=== PATIENT | male | born 1930 | race African-American/Black ===

== ENCOUNTER 2017-04-01 08:42 | Inpatient (IN) ==
[2017-04-01 09:24] LABS: Basophils # 0.1 10*3/uL (0.0-0.2); Basophils % 0.9 % (0.0-0.8); Eosinophils # 0.2 10*3/uL (0.0-0.87); Eosinophils % 1.3 % (0.00-10.9); Hematocrit 39.4 VOL% (42.0-52.0); Immature Granulocytes % 1.7 %; Immature Granulocytes Absolute 0.21 #; Lymphocytes # 2.6 10*3/uL (1.4-4.0); Lymphocytes % 20.9 % (21.2-54.2); Mean Corpuscular Hemoglobin 26 PG (27-34); Mean Corpuscular Volume 79.8 FL (87-102); Mean Platelet Volume 10.1 FL (9.6-12.0); Monocytes % 7.9 % (1.7-12.7); Neutrophils # 8.2 10*3/uL (1.4-7.4); Neutrophils % 67.3 % (38.7-73.9); Platelet Count 330 T/CUMM (130-400); Red Blood Count 4.94 MC/CUMM (3.8-5.5); Red Cell Distribution Width 14.8 % (9.3-17.3); White Blood Count 12.2 T/CUMM (4-12)
[2017-04-01 10:06] LABS: Alanine Aminotransferase 14 U/L (16-61); Albumin 3.6 G/DL (3.4-5.0); Alkaline Phosphatase 89 U/L (45-117); Aspartate Amino Transferase 14 U/L (0-37); Bilirubin,Total < 0.39 MG/DL (0.2-1.0); Calcium 9.4 MG/DL (8.5-10.1); Total Protein 6.8 G/DL (6.4-8.3)
--- NOTE | 2017-04-01 10:06 | CT Report ---
Referring physician: Augie Polk EXAM: CT abdomen and pelvis without contrast DATE: April 01, 2017 COMPARISON: CT abdomen and pelvis July 05, 2016, lumbar spine x-rays November 26, 2013 REASON: Left-sided abdominal pain with weight loss TECHNIQUE: Axial images of the abdomen and pelvis were obtained without the use of contrast. Coronal and sagittal reformatted images were also provided. Total DLP is 186.4 mGy*cm. FINDINGS: Lower thorax: There is mild right pleural fluid. There also mild opacities at both lung bases, mainly within the right lower lobe. This most consistent with atelectasis and scarring, but there could also be pneumonia within the right lower lobe. A moderate hiatal hernia is present. ABDOMEN: Liver: Unremarkable. Gallbladder and bile ducts: The gallbladder is unremarkable. The common bile duct is partially obscured but appears upper normal in size. Pancreas: Evaluation of the pancreas is limited by the lack of contrast and adjacent unopacified bowel. The pancreatic duct is mildly prominent, measuring 0.55 cm in diameter. Comparison to the previous study is difficult, but it may be slightly more prominent today. Spleen: Unremarkable. Adrenals: Unremarkable. Kidneys and ureters: There are small calcifications at the renal ousmane bilaterally, which are likely vascular. There is also a punctate nonobstructing stone at the upper pole of the right kidney. No hydronephrosis is present, and no ureteral calculi are seen. A 1.6 cm cyst is suspected at the lower pole of the right kidney but is not well characterize due to the lack of contrast. PELVIS: Bladder: Unremarkable. Reproductive: Unremarkable as visualized. ABDOMEN AND PELVIS: Bowel: There is linear density within the upper abdomen anterior to the pancreas. This could represent vascular calcification or a suture line at the bowel. There is no evidence of bowel obstruction. There are a few colonic diverticula but no evidence of diverticulitis. Appendix: The appendix is poorly visualized, but there are no secondary signs of appendicitis. Vasculature: There is prominent calcified plaque at the arteries, but the aorta is normal in size. Peritoneum: No free air or ascites is seen. There is mild diffuse mesenteric edema. Lymph nodes: No suspicious adenopathy is seen. Abdominal/pelvic wall: Unremarkable. Bones: There is a subacute or remote fracture of the right 11th rib and mild remote compression fractures of T11 and T12. There is also extensive multilevel degenerative change at the spine. IMPRESSION: 1. Mild right pleural fluid. There are also mild opacities at the lung bases, mainly within the right lower lobe. This is most consistent with atelectasis and scarring, but there could also be pneumonia within the right lower lobe. 2. The pancreatic duct is mildly prominent, measuring 0.55 cm in diameter. Comparison to the previous study is difficult, but it may be slightly more prominent today. 3. Moderate hiatal hernia. 4. Punctate nonobstructing stone at the upper pole of the right kidney. There is also a probable 1.6 cm right renal cyst, which is not well characterized on this noncontrast study. 5. Nonspecific mild mesenteric edema. 6. Mild colonic diverticulosis without evidence of diverticulitis. 7. Subacute or remote fracture of the right 11th rib. The CT exam was performed using one or more of the following dose reduction techniques: Automated exposure control and adjustment of the mA and/or kV according to patient size. PROCEDURE INTERPRETED AT [facility] DEPARTMENT OF RADIOLOGY Final Report Signed by: Dr. Lakeisha Gutierrez
[2017-04-01 10:07] LABS: Blood Urea Nitrogen 13 MG/DL (7-18); Glucose 84 MG/DL (74-106); Magnesium 1.9 MG/DL (1.8-2.4); Osmolality,Calculated 281.1 MOS/KG (273-304); Potassium 3.5 MMOL/L (3.5-5.1); Sodium 142 MMOL/L (136-145)
--- NOTE | 2017-04-01 10:09 | XRay Report ---
Referring Physician: Augie Polk Exam: XR chest 1V portable Date: April 01, 2017 at 9:22 AM Reason: Generalized abdominal pain Comparison: Chest one view portable October 01, 2016 and November 25, 2013 Findings: The cardiac silhouette is upper normal in size, and the thoracic aorta is tortuous with scattered calcified plaque. There are mild bibasilar opacities. This likely represents atelectasis and scarring, but there could also be pneumonia, especially at the right lung base. No pneumothorax is identified, but there is mild right pleural fluid. There is again a fracture of the proximal diaphysis of the right humerus. Surgical hardware was previously seen but is not identified on this study. The osseous structures otherwise appear stable as visualized. Impression: 1. There are mild bibasilar opacities, mainly on the right. This likely represents atelectasis and scarring, but there could also be pneumonia. There is also mild right pleural fluid. 2. Displaced fracture of the proximal diaphysis of the right humerus. This was present on the previous study. The previously seen surgical hardware at the right humerus is not identified today. PROCEDURE INTERPRETED AT [facility] DEPARTMENT OF RADIOLOGY Final Report Signed by: Dr. Lakeisha Gutierrez
[2017-04-01 10:10] LABS: Apearance,Urine CLEAR (Clear); Bilirubin,Urine Negative (Negative); Blood, Urine Negative (Negative); Glucose,Urine (UA) Negative (Negative); Ketones,Urine Negative (Negative); Mucus,Urine Occasional /LPF (Occasional); Nitrite,Urine Negative (Negative); Protein,Urine Negative; RBC,Urine <1 /HPF (0-4); Urine Color Yellow (Yellow); Urine Specific Gravity 1.019 (1.001-1.035); Urine Urobilinogen < 2.0 EU/DL (0.2-1.0); WBC,Urine <1 /HPF (0-6)
--- NOTE | 2017-04-01 10:43 | Emergency Department Note ---
Beni Lizama Manpreet, am scribing for, and in the presence of, Augie Polk MD 09:17. Felicitas Lizama Phillip K, MD, personally performed the services described in this documentation, ascribed by Jamie Bazan in my presence, and it is both accurate and complete 043 . Arrival - Arrival Chief Complaint: Non-Specific Stated Complaint: abd pain/rapid weight loss ED Nursing Triage Note: Family reports pt has been c/o abd pain, not eating, and weight loss worse over the last 2 wks but is has been going on for a while now. Pt saw Dr Dukes on Saturday and son states he is here to be admitted for work up. Mode of Arrival: Wheelchair Limitations: No Limitations Source: Family Time Seen by Provider: 04/01/17 09:09 - History of Present Illness HPI Narrative: Pt is a 86 y/o male, with PMHx of HTN, HLD, COPD, and A-fib, who presents to the ED with CC of Abd pain. Pt is accompanied by his son, who is his primary historian. Pt's son states the Pt has been having this Abd pain since 1 year and has worsened over the last [address] Dukes on Saturday (03/29/2017) for this same reason. The son reports the Pt having a cough and has lost 46 pounds over the course of the year. The son denies the Pt having N/V/D and has had nml BM. No other pains/complaints reported to ED. Onset (ago): month(s) Consistency: constant Severity: moderate Severity scale (1-10): 3 Quality: cramping Allergies/Adverse Reactions: Allergies Allergy/AdvReac Type Severity Reaction Status Date / Time ciprofloxacin [From Cipro] Allergy Unknown/Unable Verified 09/24/16 13:57 to obtain Cyclobenzaprine Allergy Unknown/Unable Verified 09/24/16 13:57 [From Flexeril] to obtain Home Medications: Home Medications Medication Instructions Recorded Confirmed Type Amlodipine Besylate 10 mg PO DAILY 11/05/15 09/25/16 History Lipase/Protease/Amylase [Pancreaze 1 each PO DAILY 11/05/15 09/25/16 History 10,500 Units] Potassium Chloride Cap/Tab [Micro 8 meq PO BID 11/05/15 09/25/16 History K] Pravastatin [Pravachol] 20 mg PO DAILY 11/05/15 09/25/16 History Theophylline ER Tab 300 mg PO DAILY 11/05/15 09/25/16 History clonazePAM [Clonazepam] 0.5 tablet PO BID 11/05/15 09/25/16 History predniSONE TAB [PredniSONE] 10 mg PO DAILY 11/05/15 09/25/16 History Apixaban [Eliquis] 2.5 mg PO BID #60 tablet 11/11/15 09/25/16 Rx Montelukast Tab [Singulair Tab] 10 mg PO DAILY #30 tablet 11/11/15 09/25/16 Rx Carvedilol [Coreg] 6.25 mg PO BID 09/24/16 09/25/16 History Diltiazem Cd Cap [Cardizem CD] 180 mg PO BID 09/24/16 09/25/16 History Ferrous Sulfate Tab [Feosol 325 mg PO DAILY 09/24/16 09/25/16 History Original Tab] Linaclotide [Linzess] 145 mcg PO DAILY 09/24/16 09/25/16 History Metformin HCl 500 mg PO BID 09/24/16 09/25/16 History Ranitidine Tab [Zantac Tab] 150 mg PO BEDTIME 09/24/16 09/25/16 History sitaGLIPtin [Januvia] 100 mg PO DAILY 09/24/16 09/25/16 History Cefuroxime Tab [Ceftin] 500 mg PO BID #10 tablet 10/02/16 Rx HYDROcodone/ACETAMIN 7.5-325 1 tablet PO Q4H #60 tablet 10/02/16 Rx [[place] 7.5-325] Pantoprazole Tab [Protonix Tab] 40 mg PO BID@0700,1900 #60 tablet 10/02/16 Rx Polyethylene Glycol Powder 17 gm PO BID PRN powder 10/02/16 Rx [Miralax] Tamsulosin [Flomax] 0.4 mg PO BID #60 capsule 10/02/16 Rx Review of System - Review of System 12 point system: reviewed and no additional remarkable complaints except as stated - Review of System Constitutional: Present: weight loss (Has lost 46 pounds). Absent: chills, fever Respiratory: Present: cough Gastrointestinal: Present: abdominal pain. Absent: nausea, vomiting, diarrhea Musculoskeletal: Absent: arm pain, back pain, leg pain, neck pain Neurological: Absent: headache, weakness Medical,Surgical,& Family Hx - Medical History Cardio: History of: Cardiac Dysrhythmia (Afib), Hypertension Endocrine: History of: Diabetes Mellitus (NIDDM), Dyslipidemia Respiratory: History of: COPD Gastrointestinal: History of: GERD Musculoskeletal: History of: Musculoskeletal Problems (,fx right arm with surgery and brace) Hematology: History of: Bleeding Problems (Heme postitive stool in er) - Surgical History Cardiac Surgeries: Patient Denies: Cardiac Surgery Abdominal Surgeries: Surgical HX of: Colonoscopy, EGD, Hernia Repair Orthopedic Surgeries: Surgical HX of;: Orthopedic Surgery (fx right arm Dr Steve in [place]) - Family History Family History: Reports;: Family Cancer (colon daughter; prostate; son) - Social History Smoking Status: Former smoker Exam Vital Signs: Vital Signs Temperature 98 F 04/01/17 10:40 Pulse Rate 67 04/01/17 10:40 Respiratory Rate 37 H 04/01/17 10:40 Blood Pressure 150/75 04/01/17 10:40 O2 Sat by Pulse Oximetry 94 L 04/01/17 10:40 - General General appearance: alert, in no apparent distress - Head Head exam: Present: atraumatic, normocephalic, normal inspection - Eye Eye exam: Present: normal appearance, PERRL, EOMI, other (Pale conjuctiva) - ENT ENT exam: Present: normal exam, mucous membranes dry, TM's normal bilaterally - Neck Neck exam: Present: normal inspection, full ROM, trachea midline. Absent: tenderness, thyromegaly - Chest Chest inspection: Present: normal inspection, symmetric chest wall rise. Absent : tenderness - Respiratory Respiratory exam: Present: normal lung sounds bilaterally. Absent: accessory muscle use, respiratory distress - Cardiovascular Cardiovascular exam: Present: regular rate, normal rhythm, normal heart sounds - Abdominal Exam Abdominal exam: Present: tenderness (RUQ Tenderness), normal bowel sounds. Absent: distention - Rectal Exam Rectal exam: Present: heme (-) stool - Extremities Exam Extremities exam: Present: other (Long arm splint on right arm). Absent: normal inspection - Back Exam Back exam: Present: normal inspection, full ROM. Absent: tenderness - Neurological Exam Neurological exam: Present: alert, oriented X3, CN II-XII intact, reflexes normal - Psychiatric Psychiatric exam: Present: normal affect, normal mood - Skin Skin exam: Present: warm, dry, intact, normal color. Absent: pallor Course Course Narrative: Patient discussed with the hospitalist. Dr. Dukes wanted this patient admitted for workup of his weight loss and abdominal pain. Results - Labs CBC & BMP: 04/01/17 09:17 04/01/17 09:17 Lab Results: I have reviewed the patients labs Labs: Laboratory Tests 04/01/17 09:17 WBC 12.2 H Hgb 13.0 L Hct 39.4 L MCV 79.8 L MCH 26 L Lymph % (Auto) 20.9 L Baso % (Auto) 0.9 H Neut # (Auto) 8.2 H Dyer # (Auto) 1.0 H Laboratory Tests 04/01/17 04/01/17 09:17 09:17 Sodium 142 Potassium 3.5 Chloride 104 Carbon Dioxide 33 H BUN/Creatinine Ratio 16.00 ALT 14 L Urine pH 6.0 Ur Specific Silver 1.019 Urine Urobilinogen < 2.0 H Urine RBC <1 Urine WBC <1 - EKG EKG results: interpreted by MAMADOU, sinus rhythm (Old septal MA) - Diagnostic Findings Procedure: Chest x-ray: report reviewed by me (1. There are mild bibasilar opacities, mainly on the right. This likely represents atelectasis and scarring , but there could also be pneumonia. There is also mild right pleural fluid. 2. Displaced fracture of the proximal diaphysis of the right humerus. This was present on the previous study. The previously seen surgical hardware at the right humerus is not identified today.), CT Abdomen and Pelvis: report reviewed by me (CT Abd/Pel w/o con: 1. Mild right pleural fluid. There are also mild opacities at the lung bases, mainly within the right lower lobe. This is most consistent with atelectasis and scarring, but there could also be pneumonia within the right lower lobe. 2. The pancreatic duct is mildly prominent, measuring 0.55 cm in diameter. Comparison to the previous study is difficult, but it may be slightly more prominent today. 3. Moderate hiatal hernia. 4. Punctate nonobstructing stone at the upper pole of the right kidney. There is also probable 1.6 cm right renal cyst, which is not well characterized on the noncontrast study. 5. Nonspecific mild mesenteric edema. 6. Mild colonic diverticulosis without evidence of diverticulitis. 7. Subacute or remote fracture of the right 11th rib.) Disposition Clinical Impression: Weight loss, abnormal, Abdominal pain, Possible right lower lobe pneumonia Case discussed with: patient, patient's family Disposition: Still a Patient Condition: Guarded Additional Instructions: Admit to the hospitalist.
--- NOTE | 2017-04-01 11:44 | Hospitalist History & Physical ---
Assessment and Plan - Time spent with patient Time spent with patient: Greater than 30 minutes (1) Weight loss, unintentional Status: Acute Current Visit: Yes (2) Hypertension Status: Acute Assessment and plan: Mr. ford is an 86-year-old -N[place]alese male with history of A. fib on Eliquis, COPD, hypertension, diabetes, peptic ulcer disease with history of GI bleed admitted by the hospitalist service with abdominal pain and 45 pound weight loss in the last 6 months. Patient was seen by Dr. Ibrahim in his office and he requested admission for evaluation. Will restart all of patient's home medicines for his diabetes, hypertension, and COPD. We will go ahead and hold his Eliquis if it is listed on his home meds. Consult GI for evaluation for colonoscopy. Patient has seen Dr. Chogn on previous admission. Dr. Traore will see and examined patient and further recommendations to follow. Current Visit: Yes (3) Diabetes Status: Acute Current Visit: Yes (4) History of atrial fibrillation Status: Acute Current Visit: Yes (5) History of GI bleed Status: Acute Current Visit: Yes (6) COPD (chronic obstructive pulmonary disease) Status: Acute Current Visit: Yes (7) Abdominal pain Status: Acute Current Visit: Yes History of Present Illness Chief complaint: Abdominal pain and weight loss History of present illness: Mr. Ford Sr is a 86 year old -N[place]alese male with history of peptic ulcer disease with history of GI bleeding, COPD, intermittent A. fib on Eliquis , diabetes and hypertension presenting to the ED from Dr. Ibrahim's office with abdominal pain 6 months and 45 pound weight loss. Patient is very hard of hearing and entire history taken from son who is present. According to the son the patient has had abdominal pain intermittently for the last 6 months or more and it recently worsened in the last 2 weeks to 1 month. Son states he has had some nausea with some vomiting, decreased appetite, and normal bowel movements. He went and saw Dr. Ibrahim and Dr. Ibrahim wanted him admitted for further evaluation. Patient is afebrile with vital signs stable. Patient is anemic with an H&H of 13/39.4 but this is up from his admission in September.5. He was admitted that time with a GI bleed and underwent EGD by Dr. Thaggard. C scope was not recommended at that time. CT scan done in the ED without contrast showing mild right pleural fluid most consistent with atelectasis and scarring. There is a questionable pneumonia in the right lower lobe. Pancreatic duct is mildly prominent. He has a moderate hiatal hernia. Nonobstructing stone at the upper pole of the right kidney with a probable 1.6 cm right renal cyst. Mild mesenteric edema. Mild colonic diverticulosis without diverticulitis. And subacute or remote fracture of the right 11th rib. Upon exam, history is difficult to obtain from patient due to hard of hearing and difficulty understanding speech. His chest is clear, abdomen is soft with mild tenderness in the left lower quadrant with normal bowel sounds. Patient's only complaints are of headache and abdominal pain with nausea. He denies blurry vision, dysphasia, shortness of breath, chest pain, or lower extremity edema. Patient's case was discussed with Dr. Polk the ED physician and Dr. Traore the admitting hospitalist, and it was agreed patient would be admitted for further evaluation. Home Medications Medication Instructions Recorded Confirmed Type Lipase/Protease/Amylase [Pancreaze 1 each PO DAILY 11/05/15 04/01/17 History 10,500 Units] Potassium Chloride Cap/Tab [Micro 8 meq PO BID 11/05/15 04/01/17 History K] Pravastatin [Pravachol] 20 mg PO DAILY 11/05/15 04/01/17 History Theophylline ER Tab 300 mg PO DAILY 11/05/15 04/01/17 History clonazePAM [Clonazepam] 0.5 tablet PO BID 11/05/15 04/01/17 History predniSONE TAB [PredniSONE] 10 mg PO QOTHER DAY 11/05/15 04/01/17 History Carvedilol [Coreg] 6.25 mg PO BID 09/24/16 04/01/17 History Ferrous Sulfate Tab [Feosol 325 mg PO DAILY 09/24/16 04/01/17 History Original Tab] Metformin HCl 500 mg PO BID 09/24/16 04/01/17 History Ranitidine Tab [Zantac Tab] 150 mg PO BEDTIME 09/24/16 04/01/17 History sitaGLIPtin [Januvia] 100 mg PO DAILY 09/24/16 04/01/17 History Pantoprazole Tab [Protonix Tab] 40 mg PO BID@0700,1900 #60 tablet 10/02/1604/01 Rx Albuterol Neb [Proventil Neb] 2.5 mg RESP TX BID 04/01/17 04/01/17 History Aspirin [Ecotrin] 81 mg PO QOTHER DAY 04/01/17 04/01/17 History Doxycycline Hyclate Cap 100 mg PO BID 04/01/17 04/01/17 History [Vibramycin Cap] HYDROcodone/ACETAMIN 5-325 [[place] 1 tablet PO BID 04/01/17 04/01/17 History 5-325] Montelukast Tab [Singulair Tab] 10 mg PO BEDTIME 04/01/17 04/01/17 History dilTIAZem HCl [Diltiazem ER (24 180 mg PO BID 04/01/17 04/01/17 History hr)] Allergies Allergy/AdvReac Type Severity Reaction Status Date / Time ciprofloxacin [From Cipro] Allergy Unknown/Unable Verified 09/24/16 13:57 to obtain Cyclobenzaprine Allergy Unknown/Unable Verified 09/24/16 13:57 [From Flexeril] to obtain Medical,Surgical,& Family Hx - Medical History Cardio: History of: Cardiac Dysrhythmia (Afib), Hypertension Endocrine: History of: Diabetes Mellitus (NIDDM), Dyslipidemia Respiratory: History of: COPD Gastrointestinal: History of: GERD Musculoskeletal: History of: Musculoskeletal Problems (,fx right arm with surgery and brace) Hematology: History of: Bleeding Problems (Heme postitive stool in er) - Surgical History Cardiac Surgeries: Patient Denies: Cardiac Surgery Abdominal Surgeries: Surgical HX of: Colonoscopy, EGD, Hernia Repair Orthopedic Surgeries: Surgical HX of;: Orthopedic Surgery (fx right arm Dr Steve in [place]) - Family History Family History: Reports;: Family Cancer (colon daughter; prostate; son), Family Diabetes, Family Hypertension - Social History Smoking Status: Former smoker Have you smoked in the last 12 months: No Frequency of Alcohol Use: None Type of Drug Use: None Lives With:: Children Functional capacity: independent ambulation Review of systems: A complete 10 system review of systems was obtained and pertinent positives and negatives per HPI Exam - Constitutional Vitals: Period Temp Pulse Resp BP Sys/Diaz Pulse Ox Last 24 Hr 98 F-98.0 F 67-68 20-37 123-150/75-80 94-95 Exam: Constitutional System: No distress. No tremulousness. Head: Normocephalic, atraumatic. Ears, Nose and Throat System: No evidence of Otitis or Mastoiditis. No epistaxis or discharge Eyes System: Pupils equal, round, and reactive. Extraocular muscles intact. Neck: Supple, without adenopathy, No jugular venous distention. No thyromegaly, neck mass, or prior surgery apparent. Respiratory System: Chest clear to auscultation. Cardiovascular System: Heart with regular rate and rhythm. No murmur. GI System: Abdomen soft, mildly tender left lower quadrant. Normo active bowel sounds present. Musculoskeletal System: limbs with no pedal edema. Full distal pulses. Neurological System: No discernable sensory deficit. No aphasia Psychiatric System: Conversation is rational Results - Labs CBC & BMP: 04/01/17 09:17 04/01/17 09:17 Lab Results: I have reviewed the past 24 hour labs - EKG EKG results: sinus rhythm - Diagnostic Findings Procedure: Chest x-ray: report reviewed by me (Mild bibasilar opacities mainly on the right. Mild right pleural fluid. Displaced fracture of the proximal diaphysis of the right humerus.), CT Abdomen and Pelvis: report reviewed by me ( Mild right pleural fluid with questionable pneumonia right lower lobe. Mildly prominent pancreatic duct. Moderate hiatal hernia. Nonobstructing stone at the upper pole of the right kidney with 1.6 cm right renal cyst. Mild mesenteric edema. Mild colonic diverticulosis without diverticulitis. Subacute fracture of right 11th rib)
[2017-04-01] MEDS ORDERED: guaiFENesin/DM ER 600-30 MG TABLET PO PRN (11:51)
[2017-04-01] MEDS ORDERED: ACETAMINOPHEN 325 MG TABLET PO PRN ×2 (11:51)
[2017-04-01] MEDS ORDERED: ONDANSETRON 4 MG/2 ML VIAL IV PRN (11:51)
[2017-04-01] MEDS ORDERED: diphenhydrAMINE CAP 25 MG CAPSULE PO PRN (11:51)
[2017-04-01] MEDS ORDERED: DOCUSATE SODIUM 100 MG CAPSULE PO PRN (11:51)
[2017-04-01] MEDS ORDERED: MORPHINE 2 MG/1 ML SYRINGE IV PRN (11:51)
[2017-04-01] MEDS ORDERED: PROMETHAZINE 25 MG TABLET PO PRN (11:51)
[2017-04-01] MEDS ORDERED: PANTOPRAZOLE 40 MG TABLET PO SCH (12:00)
[2017-04-01] MEDS ORDERED: DEXTROSE 50% 25 GM/50 ML VIAL IV PRN (12:02)
[2017-04-01] MEDS ORDERED: GLUCAGON 1 MG VIAL IM PRN (12:02)
--- NOTE | 2017-04-01 13:04 | Gastrointestinal Consult Note ---
Assessment and Plan (1) Abdominal pain Status: Acute Assessment and plan: 04/01-1 year history of left lower quadrant abdominal pain now worsened and constant in nature. No other associated symptoms. Last endoscopy noted as below. Weight loss noted as below. Eliquis held 3 weeks for her son. [address] of abdomen without contrast with no acute findings noted. Plan an addendum to followed by Dr. Chong. Current Visit: Yes History of Present Illness Chief complaint: Abdominal pain History of present illness: Mr. Logan Leon is a 86 year old male who was admitted to the hospital today with complaints of worsening abdominal pain. Patient is very hard of hearing and a poor historian however her son is at bedside and provides historical information. Information also obtained from chart review. Patient signed states that he has a history of left lower quadrant abdominal pain for the past year however this seems to have worsened over the past couple months. He states that initially the pain would come and go however over the past 2 months patient has complained of the pain being consistent. There seems to be no precipitating factors with the pain and he has no other associated symptoms. States that the patient is having good bowel movements with no melena or hematochezia. Reports that the patient is also having no nausea or vomiting associated with this. Eating does not seem to affect the pain level. He states that the pain is always in the left lower quadrant. Patient is also reported to have lost 45 pounds over the last 6 months. Patient has his meals prepared for him daily however he is reported to eat fairly well at most meals. Patient denies any difficulty swallowing. No appreciable tenderness on exam to the left lower quadrant at this time. He has a history of endoscopy in the past with last EGD in September of last year following findings of melena with only finding noted to be large hiatal hernia. Last colonoscopy was done in [address] Chen with only findings of diverticulosis. Patient has a history of atrial fibrillation and has been on Eliquis in the past however this is been held the last 3 weeks following removal of, per patient's son, a amy to his right humerus which was placed following a fall in August of last year. No reported family history of colon cancer. He has a history of diabetes and COPD as well as hypertension. He also has a reported history of peptic ulcer disease years ago. Denies any NSAID use. Home Medications Medication Instructions Recorded Confirmed Type Lipase/Protease/Amylase [Pancreaze 1 each PO DAILY 11/05/15 04/01/17 History 10,500 Units] Potassium Chloride Cap/Tab [Micro 8 meq PO BID 11/05/15 04/01/17 History K] Pravastatin [Pravachol] 20 mg PO DAILY 11/05/15 04/01/17 History Theophylline ER Tab 300 mg PO DAILY 11/05/15 04/01/17 History clonazePAM [Clonazepam] 0.5 tablet PO BID 11/05/15 04/01/17 History predniSONE TAB [PredniSONE] 10 mg PO QOTHER DAY 11/05/15 04/01/17 History Carvedilol [Coreg] 6.25 mg PO BID 09/24/16 04/01/17 History Ferrous Sulfate Tab [Feosol 325 mg PO DAILY 09/24/16 04/01/17 History Original Tab] Metformin HCl 500 mg PO BID 09/24/16 04/01/17 History Ranitidine Tab [Zantac Tab] 150 mg PO BEDTIME 09/24/16 04/01/17 History sitaGLIPtin [Januvia] 100 mg PO DAILY 09/24/16 04/01/17 History Pantoprazole Tab [Protonix Tab] 40 mg PO BID@0700,1900 #60 tablet 10/02/1604/01 Rx Albuterol Neb [Proventil Neb] 2.5 mg RESP TX BID 04/01/17 04/01/17 History Aspirin [Ecotrin] 81 mg PO QOTHER DAY 04/01/17 04/01/17 History Doxycycline Hyclate Cap 100 mg PO BID 04/01/17 04/01/17 History [Vibramycin Cap] HYDROcodone/ACETAMIN 5-325 [[place] 1 tablet PO BID 04/01/17 04/01/17 History 5-325] Montelukast Tab [Singulair Tab] 10 mg PO BEDTIME 04/01/17 04/01/17 History dilTIAZem HCl [Diltiazem ER (24 180 mg PO BID 04/01/17 04/01/17 History hr)] Allergies Allergy/AdvReac Type Severity Reaction Status Date / Time ciprofloxacin [From Cipro] Allergy Unknown/Unable Verified 09/24/16 13:57 to obtain Cyclobenzaprine Allergy Unknown/Unable Verified 09/24/16 13:57 [From Flexeril] to obtain Medical,Surgical,& Family Hx - Medical History Cardio: History of: Cardiac Dysrhythmia (Afib), Hypertension Endocrine: History of: Diabetes Mellitus (NIDDM), Dyslipidemia Respiratory: History of: COPD Gastrointestinal: History of: GERD Musculoskeletal: History of: Musculoskeletal Problems (,fx right arm with surgery and brace) Hematology: History of: Bleeding Problems (Heme postitive stool in er) - Surgical History Cardiac Surgeries: Patient Denies: Cardiac Surgery Abdominal Surgeries: Surgical HX of: Colonoscopy, EGD, Hernia Repair Orthopedic Surgeries: Surgical HX of;: Orthopedic Surgery (fx right arm Dr Steve in [place]) - Family History Family History: Reports;: Family Cancer (colon daughter; prostate; son), Family Diabetes, Family Hypertension - Social History Smoking Status: Former smoker Frequency of Alcohol Use: None Type of Drug Use: None ROS unobtainable: other (Very hard of hearing) Exam - Constitutional Vitals: Period Temp Pulse Resp BP Sys/Diaz Pulse Ox Last 24 Hr 98 F-98.0 F 67-68 20-37 123-150/69-80 90-95 General appearance: no acute distress, under weight - Head Head exam: Present: normal inspection, normocephalic - Eye Eye exam: Present: other (Lids and conjunctive are unremarkable). Absent: scleral icterus - ENT ENT exam: Present: normal exam, normal oropharynx - Neck Neck exam: Present: normal inspection - Respiratory Respiratory exam: Present: clear to auscultation bilaterally. Absent: rales, rhonchi, wheezes - Cardiovascular Cardiovascular exam: Present: regular rate and rhythm. Absent: diastolic murmur , JVD, systolic murmur - GI/Abdominal GI/Abdominal exam: Present: normal bowel sounds, soft. Absent: ascites, distended, mass, organomegaly, tenderness - Extremities Exam Extremities exam: Present: normal inspection, full ROM - Back Exam Back exam: Present: normal inspection - Neurological Exam Neurological exam: Present: alert, oriented X3 - Psychiatric Psychiatric exam: Present: normal affect, normal mood - Skin Skin exam: Present: normal color, warm, dry Results - Labs CBC & BMP: 04/01/17 09:17 04/01/17 09:17 Lab Results: I have reviewed the past 24 hour labs Quality Measures - VTE Contraindication to Pharmacological VTE Prophylaxis: Already on Theraputic Agent , No Prophylaxis Needed
[2017-04-01] MEDS: ALBUTEROL 2.5 MG/3 ML NEB RESP TX SCH ×2 (14:00→21:17)
[2017-04-01] MEDS: SODIUM CHLORIDE 0.9% 1,000 ML IV SCH ×2 (14:13→23:18)
[2017-04-01] MEDS: PRAVASTATIN 20 MG TABLET PO SCH (14:15)
[2017-04-01] MEDS: POTASSIUM CHLORIDE 8 MEQ CAPSULE PO SCH ×2 (14:15→20:54)
[2017-04-01] MEDS: THEOPHYLLINE ER 300 MG TABLET PO SCH (14:15)
[2017-04-01] MEDS: ASPIRIN EC 81 MG TABLET PO SCH (14:16)
[2017-04-01] MEDS: CARVEDILOL 6.25 MG TABLET PO SCH ×2 (14:24→20:56)
[2017-04-01] MEDS: DILTIAZEM CD 180 MG CAPSULE PO SCH ×2 (14:24→20:54)
[2017-04-01] MEDS: sitaGLIPtin 100 MG TABLET PO SCH (14:25)
[2017-04-01] MEDS: clonazePAM 0.5 MG TABLET PO SCH ×2 (15:32→20:55)
--- NOTE | 2017-04-01 16:24 | CT Report ---
Exam:CT chest wo con Date:04/01/2017 2:36 PM Indication: Weight loss Comparison: CT abdomen pelvis 04/01/2017 Technical: Images were obtained from the thoracic inlet through the lung bases without intravenous or oral contrast. Axial sagittal and coronal imaging was available for review. Dose reduction was performed with decreasing kv and mA and automated exposure Total DLP: 238.3 mGy*cm Findings: The thyroid gland, trachea and esophagus are unremarkable. The anterior middle and posterior mediastinum are demonstrated with small nodes in the carinal and aortopulmonic window measuring approximately 1 cm. The heart is demonstrated with coronary artery calcifications. Mild cardiac prominence is present.. ASVD is present in the aorta. The lungs are demonstrated with a small right base pleural effusion and atelectatic change. A hiatal hernia is demonstrated. Scarring is present in the basilar regions right greater than left without obvious nodularity The bony structures are demonstrated with degenerative spondylosis change and mild kyphosis and dextroscoliotic curve present. The abdominal structures are described by Dr. Gutierrez earlier today. Impression: 1. Underlying small right base pleural effusion with atelectatic change infiltrate and or scarring in the base regions ,right greater than left. 2. Small shoddy nodes in the mediastinum 3. Vascular calcinosis present. 4. Compound scoliosis PROCEDURE INTERPRETED AT [facility] DEPARTMENT OF RADIOLOGY Final Report Signed by: Dr. Heath Nicole
[2017-04-01] MEDS: INSULIN LISPRO 100 UNIT/ML SUBCUT SCH ×2 (17:41→22:07)
[2017-04-01] MEDS: metroNIDAZOLE INJ 500 MG in PREMIX 1 EACH IV SCH (18:39)
[2017-04-01] MEDS: PANTOPRAZOLE 40 MG TABLET PO SCH (19:48)
[2017-04-01] MEDS: cefTRIAXone 1,000 MG VIAL IM SCH (19:56)
[2017-04-01] MEDS: MONTELUKAST 10 MG TABLET PO SCH (20:55)
[2017-04-01] MEDS: FAMOTIDINE 20 MG TABLET PO SCH (20:55)
[2017-04-02] MEDS: metroNIDAZOLE INJ 500 MG in PREMIX 1 EACH IV SCH ×3 (01:56→18:39)
[2017-04-02 05:29] LABS: Basophils # 0.1 10*3/uL (0.0-0.2); Basophils % 1.2 % (0.0-0.8); Eosinophils # 0.3 10*3/uL (0.0-0.87); Eosinophils % 2.8 % (0.00-10.9); Hematocrit 34.2 VOL% (42.0-52.0); Immature Granulocytes % 1.8 %; Immature Granulocytes Absolute 0.19 #; Lymphocytes % 18.8 % (21.2-54.2); Mean Corpuscular HGB Conc 32.2 GM/DL (32-36); Mean Corpuscular Hemoglobin 26 PG (27-34); Mean Corpuscular Volume 80.9 FL (87-102); Mean Platelet Volume 10.7 FL (9.6-12.0); Monocytes # 0.9 10*3/uL (0.11-0.8); Neutrophils # 6.9 10*3/uL (1.4-7.4); Neutrophils % 66.4 % (38.7-73.9); Platelet Count 311 T/CUMM (130-400); Red Blood Count 4.23 MC/CUMM (3.8-5.5); Red Cell Distribution Width 14.9 % (9.3-17.3); White Blood Count 10.4 T/CUMM (4-12)
[2017-04-02 05:54] LABS: Elliptocytes Few; Hypochromasia 1+; Platelet Estimate Adequate
[2017-04-02 05:55] LABS: Microcytosis Slight
[2017-04-02 05:58] LABS: Albumin 2.9 G/DL (3.4-5.0); Bilirubin,Total 0.5 MG/DL (0.2-1.0); Calcium 8.7 MG/DL (8.5-10.1); Osmolality,Calculated 287.6 MOS/KG (273-304); Potassium 3.9 MMOL/L (3.5-5.1); Total Protein 5.4 G/DL (6.4-8.3)
--- NOTE | 2017-04-02 06:00 | EKG Report ---
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
[2017-04-02 06:01] LABS: Calcium 8.7 MG/DL (8.5-10.1); Osmolality,Calculated 287.6 MOS/KG (273-304); Potassium 3.8 MMOL/L (3.5-5.1)
[2017-04-02] MEDS: PANTOPRAZOLE 40 MG TABLET PO SCH ×2 (06:30→20:33)
[2017-04-02] MEDS: ALBUTEROL 2.5 MG/3 ML NEB RESP TX SCH ×2 (07:50→18:55)
[2017-04-02] MEDS: SODIUM CHLORIDE 0.9% 1,000 ML IV SCH ×2 (08:27→17:39)
[2017-04-02] MEDS ORDERED: PANCREAZE PO SCH (09:00)
--- NOTE | 2017-04-02 09:43 | Gastrointestinal Progress Note ---
Assessment and Plan (1) Abdominal pain Status: Acute Assessment and plan: 04/02-Pain continued, relieved with analgesic. No N/V. Tolerating clear liquids. Afebrile. Negative stool for occult blood. Continue IV antibiotics. Plan and addendum to follow by Dr Chong. 04/01-1 year history of left lower quadrant abdominal pain now worsened and constant in nature. No other associated symptoms. Last endoscopy noted as below. Weight loss noted as below. Eliquis held 3 weeks [address] son. [address] of abdomen without contrast with no acute findings noted. Plan an addendum to followed by Dr. Chong. Current Visit: Yes Gastroenterology - PN: Subj Interval history: CC: Abdominal pain Pt is awake and alert with family at bedside. States he had a restful night. Denies any nausea or vomiting. Pt states that he is having continued lower abdominal pain at this time however analgesics are helping. He is afebrile at this time. Abdomen is soft, nontender. Stool studies are negative for occult blood. ROS: Denies SOB or chest pain Exam (Progress Note) - Constitutional Vitals: Period Temp Pulse Resp BP Sys/Diaz Pulse Ox Last 24 Hr 96.5 F-98.6 F 59-78 16-37 119-156/57-80 90-100 General appearance: normal weight, no acute distress - Head Head exam: Present: normal inspection, normocephalic - Eye Eye exam: Present: other (lids and conjunctiva unremarakble). Absent: scleral icterus - ENT ENT exam: Present: normal exam, normal oropharynx - Neck Neck exam: Present: normal inspection - Respiratory Respiratory exam: Present: clear to auscultation bilaterally. Absent: rales, rhonchi, wheezes - Cardiovascular Cardiovascular exam: Present: regular rate and rhythm. Absent: diastolic murmur , JVD, systolic murmur - GI/Abdominal GI/Abdominal exam: Present: normal bowel sounds, soft. Absent: ascites, distended, mass, organomegaly, tenderness - Extremities Exam Extremities exam: Present: normal inspection, full ROM - Back Exam Back exam: Present: normal inspection - Neurological Exam Neurological exam: Present: alert, oriented X3 - Psychiatric Psychiatric exam: Present: normal affect, normal mood - Skin Skin exam: Present: normal color, warm, dry Results - Labs CBC & BMP: 04/02/17 04:46 04/02/17 04:46 Lab Results: I have reviewed the past 24 hour labs
[2017-04-02] MEDS: clonazePAM 0.5 MG TABLET PO SCH ×2 (09:44→20:33)
[2017-04-02] MEDS: DILTIAZEM CD 180 MG CAPSULE PO SCH ×2 (09:44→20:33)
[2017-04-02] MEDS: PRAVASTATIN 20 MG TABLET PO SCH (09:45)
[2017-04-02] MEDS: POTASSIUM CHLORIDE 8 MEQ CAPSULE PO SCH ×2 (09:45→20:33)
[2017-04-02] MEDS: CARVEDILOL 6.25 MG TABLET PO SCH ×2 (09:45→20:33)
[2017-04-02] MEDS: sitaGLIPtin 100 MG TABLET PO SCH (09:45)
[2017-04-02] MEDS: THEOPHYLLINE ER 300 MG TABLET PO SCH (09:45)
[2017-04-02] MEDS: INSULIN LISPRO 100 UNIT/ML SUBCUT SCH ×4 (09:45→20:38)
--- NOTE | 2017-04-02 14:29 | Hospitalist Progress Note ---
Assessment and Plan - Time spent with patient Time spent with patient: Greater than 30 minutes (1) Abdominal pain Status: Acute Assessment and plan: Associated with reduced oral intake of food. Concern for diverticulitis. Continue antibiotics. Current Visit: Yes (2) Weight loss, unintentional Status: Acute Assessment and plan: CT of the chest abdomen and pelvis is unremarkable. Current Visit: Yes (3) COPD (chronic obstructive pulmonary disease) Status: Acute Assessment and plan: Stable. Continue home meds. Current Visit: Yes (4) Diabetes Status: Acute Assessment and plan: Continue current management. Current Visit: Yes (5) Hypertension Status: Acute Assessment and plan: Continue current management. Current Visit: Yes (6) History of atrial fibrillation Status: Acute Assessment and plan: Appears to have a history of paroxysmal atrial fibrillation. Eliquis has been held for several weeks. Current Visit: Yes Hospitalist: Subjective Interval history: No complaints. No overnight events. Exam - Constitutional Vitals: Period Temp Pulse Resp BP Sys/Diaz Pulse Ox Last 24 Hr 96.5 F-98.6 F 59-99 16-32 119-153/57-76 93-100 General appearance: no acute distress - Head Head exam: Present: normocephalic, atraumatic - Eye Eye exam: Present: EOMI Pupils: Present: TANGELA - ENT ENT exam: Present: normal exam - Neck Neck exam: Present: normal inspection - Respiratory Respiratory exam: Present: clear to auscultation bilaterally. Absent: rhonchi, wheezes - Cardiovascular Cardiovascular exam: Present: regular rate and rhythm. Absent: gallop, rubs, systolic murmur - GI/Abdominal GI/Abdominal exam: Present: normal bowel sounds, soft. Absent: distended, firm , guarding, tenderness, rebound - Extremities Exam Extremities exam: Present: normal inspection. Absent: calf tenderness, edema Results - Labs CBC & BMP: 04/02/17 04:46 04/02/17 04:46 Lab Results: I have reviewed the past 24 hour labs Quality Measures - VTE Contraindication to Pharmacological VTE Prophylaxis: Already on Theraputic Agent , No Prophylaxis Needed
[2017-04-02] MEDS: cefTRIAXone 1,000 MG VIAL IM SCH (18:41)
[2017-04-02] MEDS: MONTELUKAST 10 MG TABLET PO SCH (20:33)
[2017-04-02] MEDS: FAMOTIDINE 20 MG TABLET PO SCH (20:33)
[2017-04-03] MEDS: metroNIDAZOLE INJ 500 MG in PREMIX 1 EACH IV SCH ×2 (02:09→10:34)
[2017-04-03] MEDS: SODIUM CHLORIDE 0.9% 1,000 ML IV SCH ×3 (02:10→11:38)
[2017-04-03 05:31] LABS: Basophils # 0.2 10*3/uL (0.0-0.2); Basophils % 1.4 % (0.0-0.8); Eosinophils # 0.3 10*3/uL (0.0-0.87); Immature Granulocytes % 1.3 %; Immature Granulocytes Absolute 0.14 #; Lymphocytes # 2.1 10*3/uL (1.4-4.0); Mean Corpuscular HGB Conc 32.4 GM/DL (32-36); Mean Corpuscular Hemoglobin 26 PG (27-34); Mean Corpuscular Volume 80.8 FL (87-102); Mean Platelet Volume 10.4 FL (9.6-12.0); Monocytes # 1.2 10*3/uL (0.11-0.8); Monocytes % 11.2 % (1.7-12.7); Neutrophils # 6.6 10*3/uL (1.4-7.4); Neutrophils % 63.1 % (38.7-73.9); Platelet Count 268 T/CUMM (130-400); Red Blood Count 4.21 MC/CUMM (3.8-5.5); Red Cell Distribution Width 14.9 % (9.3-17.3); White Blood Count 10.4 T/CUMM (4-12)
[2017-04-03] MEDS: PANTOPRAZOLE 40 MG TABLET PO SCH (06:12)
[2017-04-03 06:23] LABS: Calcium 8.5 MG/DL (8.5-10.1); Osmolality,Calculated 289.4 MOS/KG (273-304); Potassium 3.9 MMOL/L (3.5-5.1)
[2017-04-03] MEDS: ALBUTEROL 2.5 MG/3 ML NEB RESP TX SCH (07:18)
[2017-04-03] MEDS: INSULIN LISPRO 100 UNIT/ML SUBCUT SCH ×2 (08:10→12:21)
[2017-04-03] MEDS: ASPIRIN EC 81 MG TABLET PO SCH (08:26)
[2017-04-03] MEDS: sitaGLIPtin 100 MG TABLET PO SCH (08:27)
[2017-04-03] MEDS: DILTIAZEM CD 180 MG CAPSULE PO SCH (08:27)
[2017-04-03] MEDS: THEOPHYLLINE ER 300 MG TABLET PO SCH (08:28)
[2017-04-03] MEDS: CARVEDILOL 6.25 MG TABLET PO SCH (08:28)
[2017-04-03] MEDS: PRAVASTATIN 20 MG TABLET PO SCH (08:28)
[2017-04-03] MEDS: POTASSIUM CHLORIDE 8 MEQ CAPSULE PO SCH (08:28)
[2017-04-03] MEDS: clonazePAM 0.5 MG TABLET PO SCH (08:28)
--- NOTE | 2017-04-03 10:20 | Gastrointestinal Progress Note ---
Assessment and Plan (1) Abdominal pain Status: Acute Assessment and plan: 04/03-vague complaints of pain. No nausea vomiting. Tolerating soft diet. Continue IV antibiotics. Plan an addendum to followed by Dr. Chong 04/02-Pain continued, relieved with analgesic. No N/V. Tolerating clear liquids. Afebrile. Negative stool for occult blood. Continue IV antibiotics. Plan and addendum to follow by Dr Chong. 04/01-1 year history of left lower quadrant abdominal pain now worsened and constant in nature. No other associated symptoms. Last endoscopy noted as below. Weight loss noted as below. Eliquis held [address] son[address] of abdomen without contrast with no acute findings noted. Plan an addendum to followed by Dr. Chong. Current Visit: Yes Gastroenterology - PN: Subj Interval history: CC: Abdominal pain Patient is seen awake and alert lying in bed with family at bedside. States he had a restful night. He continues to complain of some vague pain however uncertain as this is abdominal oriented are due to his right humerus fracture. No reports of nausea vomiting. The bedside states that patient's appetite is improving and he is to continue to eat more as the days go by. Denies any overt bleeding. He is tolerating his advance diet at present time. He is afebrile and no leukocytosis. Abdomen soft, nontender. Noted to have bowel movement yesterday. ROS: Denies shortness of breath or chest pain Exam (Progress Note) - Constitutional Vitals: Period Temp Pulse Resp BP Sys/Diaz Pulse Ox Last 24 Hr 97.5 F-98.5 F 58-95 16-20 101-138/53-70 94-99 General appearance: normal weight, no acute distress - Head Head exam: Present: normal inspection, normocephalic - Eye Eye exam: Present: other (Lids and conjunctive are unremarkable). Absent: scleral icterus - ENT ENT exam: Present: normal exam, normal oropharynx - Neck Neck exam: Present: normal inspection - Respiratory Respiratory exam: Present: clear to auscultation bilaterally. Absent: rales, rhonchi, wheezes - Cardiovascular Cardiovascular exam: Present: regular rate and rhythm. Absent: diastolic murmur , JVD, systolic murmur - GI/Abdominal GI/Abdominal exam: Present: normal bowel sounds, soft. Absent: ascites, distended, mass, organomegaly, tenderness - Extremities Exam Extremities exam: Present: normal inspection, full ROM - Back Exam Back exam: Present: normal inspection - Neurological Exam Neurological exam: Present: alert, oriented X3 - Psychiatric Psychiatric exam: Present: normal affect, normal mood - Skin Skin exam: Present: normal color, warm, dry Results - Labs CBC & BMP: 04/03/17 05:22 04/03/17 05:22 Lab Results: I have reviewed the past 24 hour labs
[2017-04-03 12:44] VITALS: BP 106/48
--- NOTE | 2017-04-03 13:50 | Discharge Summary ---
Hospital Course - Hospital Course Hospital Course: Mr. Ford was admitted for evaluation of weight loss and abdominal pain. He has no complaints of dysphagia, nausea, vomiting, diarrhea or swallowing difficulty. CT of his abdomen in the ER revealed mild right pleural fluid, mildly prominent pancreatic duct, moderate hiatal hernia, nonspecific mild mesenteric edema and mild colonic diverticulosis. Furthermore there was a subacute or remote fracture of the right 11th rib. He was admitted and evaluated by gastroenterology who felt this may be diverticulitis and initiated him on GI specific antibiotics. Patient tolerated this well and his abdominal pain improved CT of his chest was performed to evaluate his unintentional weight loss which was unremarkable. I explained to the patient and family given that he has a hiatal hernia to eat small meals more frequently. By discharge patient had met maximum benefit of hospitalization. He will be discharged with antibiotics to treat his diverticulitis. I spent 36 minutes coordinating this discharge. - Time spent with patient Time with patient DS: Greater than 30 minutes Diagnosis - Discharge Diagnosis (1) Abdominal pain Status: Acute (2) Weight loss, unintentional Status: Acute (3) COPD (chronic obstructive pulmonary disease) Status: Acute (4) Diabetes Status: Acute (5) Hypertension Status: Acute (6) History of atrial fibrillation Status: Acute Discharge Plan - Discharge Data Disposition: Disch To Home/Self Care Condition at Discharge: Stable Discharge Diet: advance to your usual diet Activity: resume usual activities as tolerated - Discharge Medications New Amoxicillin/Potassium Clav [Amox Tr-K Clv 875-125 mg Tab] 1 each PO BID #16 tablet metroNIDAZOLE [Metronidazole] 500 mg PO TID #24 tablet Continue clonazePAM [Clonazepam] 0.5 tablet PO BID Pravastatin [Pravachol] 20 mg PO DAILY Lipase/Protease/Amylase [Pancreaze 10,500 Units] 1 each PO DAILY Potassium Chloride Cap/Tab [Micro K] 8 meq PO BID Theophylline ER Tab 300 mg PO DAILY Ranitidine Tab [Zantac Tab] 150 mg PO BEDTIME Metformin HCl 500 mg PO BID sitaGLIPtin [Januvia] 100 mg PO DAILY Ferrous Sulfate Tab [Feosol Original Tab] 325 mg PO DAILY Carvedilol [Coreg] 6.25 mg PO BID Montelukast Tab [Singulair Tab] 10 mg PO BEDTIME HYDROcodone/ACETAMIN 5-325 [[place] 5-325] 1 tablet PO BID Aspirin [Ecotrin] 81 mg PO QOTHER DAY Pantoprazole Tab [Protonix Tab] 40 mg PO BID@0700,1900 #60 tablet dilTIAZem HCl [Diltiazem ER (24 hr)] 180 mg PO BID Albuterol Neb [Proventil Neb] 2.5 mg RESP TX BID Discontinued predniSONE TAB [PredniSONE] 10 mg PO QOTHER DAY Doxycycline Hyclate Cap [Vibramycin Cap] 100 mg PO BID - Follow Up or Referral - Forms/Instructions Exam - Constitutional Vitals: Period Temp Pulse Resp BP Sys/Diaz Pulse Ox Last 24 Hr 97.5 F-98.5 F 57-95 16-28 101-138/48-66 91-99 General appearance: normal weight, no acute distress - Head Head exam: Present: normal inspection, normocephalic, atraumatic - Eye Eye exam: Present: EOMI Pupils: Present: TANGELA - ENT ENT exam: Present: normal exam - Neck Neck exam: Present: normal inspection - Respiratory Respiratory exam: Present: clear to auscultation bilaterally. Absent: accessory muscle use, prolonged expiratory phase, wheezes - Cardiovascular Cardiovascular exam: Present: regular rate and rhythm. Absent: bradycardia, irregular rhythm, systolic murmur - GI/Abdominal GI/Abdominal exam: Present: normal bowel sounds. Absent: ascites, hypoactive bowel sounds, tenderness - Extremities Exam Extremities exam: Present: normal inspection Discharge Results Procedures and tests throughout hospitalization: Pending Orders 04/01/17 11:53 Occult Blood, Stool Stat Labs on day of discharge: Labs from last 24 hours 04/03/17 04/03/17 04/03/17 11:41 07:18 05:22 WBC RBC Hgb Hct MCV MCH MCHC RDW Plt Count MPV Neut % (Auto) Lymph % (Auto) Schley % (Auto) Eos % (Auto) Baso % (Auto) Neut # (Auto) Lymph # (Auto) Schley # (Auto) Eos # (Auto) Baso # (Auto) Immature Gran % Nucleated RBC % Immature Gran # Nucleated RBCs # Sodium 147 H Potassium 3.9 Chloride 111 H Carbon Dioxide 31 Anion Gap 8.9 BUN 10 Creatinine 0.80 GFR Calculation 88 BUN/Creatinine Ratio 12.00 Glucose 83 POC Glucose 99 92 Calculated Osmolality 289.4 Calcium 8.5 04/03/17 04/02/17 04/02/17 05:22 20:04 16:35 WBC 10.4 RBC 4.21 Hgb 11.0 L Hct 34.0 L MCV 80.8 L MCH 26 L MCHC 32.4 RDW 14.9 Plt Count 268 MPV 10.4 Neut % (Auto) 63.1 Lymph % (Auto) 20.0 L Schley % (Auto) 11.2 Eos % (Auto) 3.0 Baso % (Auto) 1.4 H Neut # (Auto) 6.6 Lymph # (Auto) 2.1 Schley # (Auto) 1.2 H Eos # (Auto) 0.3 Baso # (Auto) 0.2 Immature Gran % 1.3 Nucleated RBC % 0.0 Immature Gran # 0.14 Nucleated RBCs # 0.00 Sodium Potassium Chloride Carbon Dioxide Anion Gap BUN Creatinine GFR Calculation BUN/Creatinine Ratio Glucose POC Glucose 156 H 99 Calculated Osmolality Calcium DS: Provider Date of admission: 04/01/17 10:40 Primary care physician: Gino Dukes MD Attending physician on admission: Ana Laura Deleon MD Consults: 04/01/17 11:51 Consult to Physician [CONS] Routine Comment: abd pain, wt loss, saw him in dec Consulting Provider: Heath Chong Consulting Provider Notified: Yes When should Consulting Provider be notified: Now Consult to Specialist Group: Gastroenterology When should Consulting Provider be notified: Now Person Notified: MARTHA Date Notified: 04/01/17 Time Notified: 13:08 04/01/17 13:15 Consult to Dietitian [CONS] Routine Reason for Dietitian: Dietary Consult 04/01/17 13:18 Consult to Dietitian [CONS] Routine Reason for Dietitian: Dietary Consult Discharging clinician: Ana Laura Deleon MD Expected date of discharge: 04/03/17
== END 2017-04-03 15:16 | disposition home or self-care (01) | DRG 392 ==
LOC: N.ED 08:42 → N.EDINP 10:40 → N.4E 11:22
PROVIDERS: ADMIT Internal Medicine; ATTEND Internal Medicine

== ENCOUNTER 2017-06-11 11:42 | Inpatient (IN) ==
[2017-06-11] MEDS ORDERED: AZITHROMYCIN INJ 500 MG in SODIUM CHLORIDE 0.9% 250 ML IV STA (12:33)
[2017-06-11] MEDS ORDERED: cefTRIAXone 1,000 MG in SODIUM CHLORIDE 0.9% 100 ML IV STA (12:33)
[2017-06-11] MEDS ORDERED: methylPREDNISolone SOD SUC 125 MG/2 ML VIAL IV STA (12:33)
[2017-06-11] MEDS ORDERED: SODIUM CHLORIDE 0.9% 500 ML IV STA (12:33)
--- NOTE | 2017-06-11 12:51 | CT Report ---
CT head/brain wo con Indication: Confusion and altered mental status. CT BRAIN WITHOUT CONTRAST DLP: 998 mGy*cm. One or more of the following dose reduction techniques was used: Automated exposure control, adjustment of the mA and/or kV according the patient size, or use of iterative reconstruction techniques. Comparison: 07/26/2013. Date of admission: 06/11/2017. Technique: Axial noncontrast CT images of the brain were obtained. Findings: Significant generalized atrophy and extensive patchy periventricular white matter hypodensity is present bilaterally. Cortical coy-white junction and basal ganglia structures are maintained. No mass or mass effect. No evidence of acute hemorrhage. Visualized paranasal sinuses and mastoid air cells are clear. No destructive bone lesions are shown. Internal auditory canals are symmetric. Impression: No acute intracranial pathology. Stable but severe generalized atrophy and extensive chronic small vessel ischemic change of the deep white matter. PROCEDURE INTERPRETED AT [facility] DEPARTMENT OF RADIOLOGY Final Report Signed by: Floyd Shelton M.D.
[2017-06-11] MEDS ORDERED: ALBUTEROL 2.5 MG/3 ML NEB RESP TX SCH (13:00)
--- NOTE | 2017-06-11 13:12 | XRay Report ---
Portable chest. Indication: Shortness of breath. Comparison: April 01, 2017. The heart is normal in size. The central pulmonary vasculature is prominent. The pulmonary vasculature peripherally appears normal. The right lung is clear. There is scarring plus or minus atelectasis at the left lung base. Osseous structures are diffusely demineralized. There is scoliosis and degenerative change of the spinal column with degenerative changes of both shoulders. Impression: Chronic lung changes. Scarring versus atelectasis at the left base. Prominent central pulmonary vasculature, usually indicative of pulmonary hypertension. PROCEDURE INTERPRETED AT [facility] DEPARTMENT OF RADIOLOGY Final Report Signed by: Dr. Estella Mosqueda
[2017-06-11 13:26] LABS: ABG Base Excess 5.3 MMOL/L (-2.5-2.5); ABG HCO3 29.1 MMOL/L (20-26); ABG Oxygen Saturation 91.5 % (95-100); ABG PCO2 55.1 MM HG (35-48); ABG PH 7.372 (7.35-7.45); ABG PO2 64.4 MM HG (80-95); ABG TCO2 28.7 MMOL/L (23-27)
--- NOTE | 2017-06-11 13:42 | EKG Report ---
Stationary ECG Study [facility] ER Test Date: 06/11/2017 1:41:13 PM Pat Name: DOTTIE BRANDON Department: Room: Gender: M [employer] Lead: : 1930 Requested by: Kofi Mitchell Order Number: [id number] Corine MD: DAYANARA JAFFE Intervals [place] Rate: 85 P: 85 [place]: 151 QRS: 91 QRSD: 84 T: 93 QT: 355 QTc: 398 Interpretive Statements SINUS RHYTHM LOW VOLTAGE IN THE LATERAL LEADS Electronically Signed On 06-12-17 07:09:27 CDT by DAYANARA JAFFE [id number]
[2017-06-11 13:43] LABS: Basophils # 0.1 10*3/uL (0.0-0.2); Basophils % 1.1 % (0.0-0.8); Eosinophils # 0.2 10*3/uL (0.0-0.87); Hematocrit 38.8 VOL% (42.0-52.0); Hemoglobin 12.6 GM/DL (14.0-18.0); Immature Granulocytes % 0.7 %; Immature Granulocytes Absolute 0.06 #; Lymphocytes # 1.5 10*3/uL (1.4-4.0); Lymphocytes % 16.7 % (21.2-54.2); Mean Corpuscular HGB Conc 32.5 GM/DL (32-36); Mean Corpuscular Hemoglobin 27 PG (27-34); Mean Corpuscular Volume 81.7 FL (87-102); Mean Platelet Volume 10.4 FL (9.6-12.0); Monocytes # 0.8 10*3/uL (0.11-0.8); Monocytes % 8.6 % (1.7-12.7); Neutrophils # 6.2 10*3/uL (1.4-7.4); Neutrophils % 70.9 % (38.7-73.9); Platelet Count 208 T/CUMM (130-400); Red Blood Count 4.75 MC/CUMM (3.8-5.5); Red Cell Distribution Width 16.2 % (9.3-17.3); White Blood Count 8.8 T/CUMM (4-12)
[2017-06-11 13:59] LABS: PT Patient Result 10.9 SECS
[2017-06-11 14:04] LABS: Albumin 3.7 G/DL (3.4-5.0); Bilirubin,Total 0.7 MG/DL (0.2-1.0); Calcium 9.7 MG/DL (8.5-10.1); Magnesium 2.4 MG/DL (1.8-2.4); Osmolality,Calculated 284.1 MOS/KG (273-304); Potassium 4.4 MMOL/L (3.5-5.1); Total Protein 7.1 G/DL (6.4-8.3); Troponin I Only 0.034 NG/ML (0.00-0.045)
[2017-06-11] MEDS ORDERED: methylPREDNISolone SOD SUC 125 MG/2 ML VIAL ONE (14:19)
[2017-06-11] MEDS ORDERED: cefTRIAXone 1,000 MG VIAL ONE (14:19)
--- NOTE | 2017-06-11 14:41 | Emergency Department Note ---
Geovany Lizama Brittany, am scribing for, and in the presence of, Kofi Ruggiero MD 12:25. Bahman Lizama Charles R, MD, personally performed the services described in this documentation, ascribed by Avril Armenta in my presence, and it is both accurate and complete 440 . Arrival - Arrival Chief Complaint: Weakness ED Nursing Triage Note: patient to room via ems with c/o confusion, weakness, slurred speech, cough and congestion since Saturday. Mode of Arrival: Stretcher Limitations: No Limitations Source: Patient Time Seen by Provider: 06/11/17 11:58 - History of Present Illness HPI Narrative: This is an 7n y/o male,who presents to the ED by EMS from [facility], for further neurological evaluation. His family states for the past 3 days pt has had slurred speech, confusion and weakness. Pt also complains of a cough and congestion but denies a fever. His family states pt has lost a significant amount of weight. Pt's PCP is Dr. Neely. Pt has no other complaitns/pain in the ED at this time. Pt has a PMHx of NIDDM, HTN, anxiety, dyslipidemia, A-fib, COPD, GERD, anemia, and back/neck problems. Pt has had a colonoscopy, EGD, hernia repair, and right arm surgery. Pt has a family medical hx of colon and prostate cancer, diabetes, and HTN. Pt is a former smoker. Onset (ago): day(s) (Started 3 days ago) Consistency: constant Severity: moderate Allergies/Adverse Reactions: Allergies Allergy/AdvReac Type Severity Reaction Status Date / Time ciprofloxacin [From Cipro] Allergy Unknown/Unable Verified 06/11/17 11:53 to obtain Cyclobenzaprine Allergy Unknown/Unable Verified 06/11/17 11:53 [From Flexeril] to obtain Home Medications: Home Medications Medication Instructions Recorded Confirmed Type Pravastatin [Pravachol] 20 mg PO DAILY 11/05/15 06/11/17 History Theophylline ER Tab 300 mg PO DAILY 11/05/15 06/11/17 History clonazePAM [Clonazepam] 0.5 tablet PO BID 11/05/15 06/11/17 History Carvedilol [Coreg] 6.25 mg PO BID 09/24/16 06/11/17 History Metformin HCl 500 mg PO BID 09/24/16 06/11/17 History Ranitidine Tab [Zantac Tab] 150 mg PO BEDTIME 09/24/16 06/11/17 History sitaGLIPtin [Januvia] 100 mg PO DAILY 09/24/16 06/11/17 History Albuterol Neb [Proventil Neb] 2.5 mg RESP TX BID 04/01/17 06/11/17 History Aspirin [Ecotrin] 81 mg PO QOTHER DAY 04/01/17 06/11/17 History Montelukast Tab [Singulair Tab] 10 mg PO BEDTIME 04/01/17 06/11/17 History dilTIAZem HCl [Diltiazem ER (24 180 mg PO BID 04/01/17 06/11/17 History hr)] HYDROcodone/ACETAMIN 7.5-325 1 tablet PO Q6H 06/11/17 06/11/17 History [[place] 7.5-325] Potassium Chloride [Klor-Con 8 meq PO BID 06/11/17 06/11/17 History Sprinkle] amLODIPine [Norvasc] 10 mg PO DAILY 06/11/17 06/11/17 History Review of System - Review of System 12 point system: reviewed and no additional remarkable complaints except as stated - Review of System Constitutional: Present: weakness (Generalized weakness), weight loss. Absent: fever Respiratory: Present: cough, other (Congestion ) Medical,Surgical,& Family Hx - Medical History Cardio: History of: Cardiac Dysrhythmia (Afib), Hypertension Psychological: History of: Anxiety Disorders HEENT: History of: Ear Problem Endocrine: History of: Diabetes Mellitus (NIDDM), Dyslipidemia Respiratory: History of: COPD Gastrointestinal: History of: GERD Musculoskeletal: History of: Back/Neck Problems, Musculoskeletal Problems (,fx right arm with surgery and brace) Hematology: History of: Anemia, Bleeding Problems (Heme postitive stool in er) - Surgical History Cardiac Surgeries: Patient Denies: Cardiac Surgery Abdominal Surgeries: Surgical HX of: Colonoscopy, EGD, Hernia Repair Orthopedic Surgeries: Surgical HX of;: Orthopedic Surgery (fx right arm Dr Steve in [place]) - Family History Family History: Reports;: Family Cancer (colon daughter; prostate; son), Family Diabetes, Family Hypertension - Social History Smoking Status: Former smoker Frequency of Alcohol Use: None Type of Drug Use: None Exam Vital Signs: Vital Signs Temperature 99.6 F 06/11/17 11:42 Pulse Rate 99 H 06/11/17 14:11 Respiratory Rate 23 06/11/17 14:11 Blood Pressure 124/65 06/11/17 11:42 O2 Sat by Pulse Oximetry 96 06/11/17 14:11 - General General appearance: lethargic, other (Exterme Atrophy) - Head Head exam: Present: atraumatic, normocephalic, normal inspection - Eye Eye exam: Present: normal appearance, PERRL, EOMI, other (Suken orbits and temporal wasting). Absent: nystagmus - ENT ENT exam: Present: normal exam, mucous membranes moist - Neck Neck exam: Present: normal inspection, full ROM, trachea midline. Absent: tenderness - Chest Chest inspection: Present: symmetric chest wall rise, other (Barrel chest). Absent: normal inspection, tenderness - Respiratory Respiratory exam: Present: accessory muscle use, rhonchi (Decreased breath sounds), wheezes. Absent: normal lung sounds bilaterally - Cardiovascular Cardiovascular exam: Present: normal rhythm, tachycardia, normal heart sounds, JVD (JVD distention ). Absent: murmur, rubs, gallop, clicks - Abdominal Exam Abdominal exam: Present: soft, normal bowel sounds. Absent: distention, tenderness, guarding, rebound, rigidity - Rectal Exam Rectal exam: Present: deferred - Extremities Exam Extremities exam: Present: normal inspection, full ROM, normal capillary refill. Absent: pedal edema - Back Exam Back exam: Present: normal inspection, full ROM. Absent: tenderness, muscle spasm, rashes - Neurological Exam Neurological exam: Present: other (Decreased LOC). Absent: oriented X3 - Psychiatric Psychiatric exam: Present: normal affect, normal mood. Absent: depressed, agitated, anxious, flat affect, manic - Skin Skin exam: Present: warm, dry, intact, normal color. Absent: rash, cyanosis, diaphoresis, erythema, pallor, mottled Course - Consultations Consultation #1: I will consulate the hospitalist and admit pt. Consultation #2: Hospitalist will admit patient Time: 14:40 Results - Labs CBC & BMP: 06/11/17 12:49 06/11/17 12:49 Lab Results: I have reviewed the patients labs - Diagnostic Findings Procedure: Chest x-ray: report reviewed by me (Chronic lung changes. Scarring versus atelectasis at the left base. Prominent central pulmonary vasculature, usally indicative of pulmonary hypertension. ), CT: report reviewed by me (Head CT: No acute intracranial pathology. Stable but severe generalized atrophy and extensive chronic small vessel ischemic change of the deep white matter. ) Disposition Clinical Impression: Chronic respiratory failure, Failure to thrive, Weight loss, Hypoxia, COPD exacerbation, COPD (chronic obstructive pulmonary disease) with emphysema, Physical deconditioning, Dependence on supplemental oxygen Case discussed with: patient, patient's family Disposition: Still a Patient Condition: Guarded Time of Disposition: 14:40
--- NOTE | 2017-06-11 15:21 | Hospitalist History & Physical ---
<Jourdan Crawford - Last Filed: 06/11/17 15:13> Assessment and Plan (1) COPD exacerbation Status: Acute Assessment and plan: The chest x-ray obtained at the time of admission reported chronic lung changes and scarring versus atelectasis at the left base. We will start empiric antibiotics, inhaled bronchodilators, intravenous corticosteroids. We will recheck chest x-ray in a.m. Current Visit: Yes (2) Failure to thrive Status: Acute Assessment and plan: The family reported the general decline in functional status in recent months. In addition, the family reported a dramatic weight loss in recent months. The patient noticeably cachectic. CT brain without contrast significant for generalized atrophy and extensive chronic small vessel ischemic change of the deep white matter. This may may be the cause of the patient's failure to thrive. Will obtain MRI to assess for possible CVA. Current Visit: Yes (3) Troponin I above reference range Status: Acute Assessment and plan: Troponin was noted at 0.034 at the time of admission. We will obtain serial cardiac enzymes; if positive; we will consult cardiology. Current Visit: Yes History of Present Illness Chief complaint: Weakness History of present illness: This is a chronically ill 87-year-old male that presented to [facility] this afternoon via EMS for the evaluation of weakness. The patient has a medical history significant for atrial fibrillation, hypertension , anxiety, [id number] diabetes mellitus, dyslipidemia, chronic obstructive pulmonary disease, gastroesophageal reflux disease, remote nicotine use, anemia, oxygen dependence, and chronic neck and back pain. Patient surgical history significant for colonoscopy, esophagogastroduodenoscopy, hernia repair, and repair of a right arm fracture. Family reported the onset of symptoms 3 days prior to presentation. They reported that the patient was noted to have slurred speech, confusion, and weakness. In addition, the patient was noted to have cough and congestion however the patient never had any fever. The family reported that the patient has experienced a significant weight loss in recent months. When the patient's symptoms became very severe his family became concerned and notified EMS for assistance. The patient was subsequently transferred to [facility] for further evaluation. The patient was assessed at the time of ED presentation. Labs were obtained which were remarkable for hemoglobin of 12.6, hematocrit 38.8, carbon dioxide 33 , BNP 116, troponin 0.034, and BUN 21. Arterial blood gas reported PCO2 at 55.1 , PO2 64.4, HCO3 29.1, and O2 saturation at 91.5. Chest x-ray reported chronic lung changes, scarring versus atelectasis at the left base, prominent central pulmonary vasculature usually indicative of pulmonary hypertension. CT head was essentially unremarkable for any acute intracranial pathology however stable but severe generalized atrophy and extensive chronic small vessel ischemic change of the deep white matter was noted. After brief discussion with both Dr. Ruggiero and Dr. Steele, the patient will be admitted to the hospitalist service for continuation of care. The patient's home medications have been reviewed and reconciled. CODE STATUS discussed; patient is FULL CODE. Home Medications Medication Instructions Recorded Confirmed Type RX: Pravastatin [Pravachol] 20 mg PO DAILY 11/05/15 06/11/17 History RX: Theophylline ER Tab 300 mg PO DAILY 11/05/15 06/11/17 History RX: clonazePAM [Clonazepam] 0.5 tablet PO BID 11/05/15 06/11/17 History RX: Carvedilol [Coreg] 6.25 mg PO BID 09/24/16 06/11/17 History RX: Metformin HCl 500 mg PO BID 09/24/16 06/11/17 History RX: Ranitidine Tab [Zantac Tab] 150 mg PO BEDTIME 09/24/16 06/11/17 History RX: sitaGLIPtin [Januvia] 100 mg PO DAILY 09/24/16 06/11/17 History RX: Albuterol Neb [Proventil Neb] 2.5 mg RESP TX BID 04/01/17 06/11/17 History RX: Aspirin [Ecotrin] 81 mg PO QOTHER DAY 04/01/17 06/11/17 History RX: Montelukast Tab [Singulair Tab] 10 mg PO BEDTIME 04/01/17 06/11/17 History RX: dilTIAZem HCl [Diltiazem ER 180 mg PO BID 04/01/17 06/11/17 History (24 hr)] HYDROcodone/ACETAMIN 7.5-325 1 tablet PO Q6H 06/11/17 06/11/17 History [[place] 7.5-325] RX: Potassium Chloride [Klor-Con 8 meq PO BID 06/11/17 06/11/17 History Sprinkle] amLODIPine [Norvasc] 10 mg PO DAILY 06/11/17 06/11/17 History Allergies Allergy/AdvReac Type Severity Reaction Status Date / Time ciprofloxacin [From Cipro] Allergy Unknown/Unable Verified 06/11/17 11:53 to obtain Cyclobenzaprine Allergy Unknown/Unable Verified 06/11/17 11:53 [From Flexeril] to obtain Medical,Surgical,& Family Hx - Medical History Cardio: History of: Cardiac Dysrhythmia (Afib), Hypertension Psychological: History of: Anxiety Disorders HEENT: History of: Ear Problem Endocrine: History of: Diabetes Mellitus (NIDDM), Dyslipidemia Respiratory: History of: COPD Gastrointestinal: History of: GERD Musculoskeletal: History of: Back/Neck Problems, Musculoskeletal Problems (,fx right arm with surgery and brace) Hematology: History of: Anemia, Bleeding Problems (Heme postitive stool in er) - Surgical History Cardiac Surgeries: Patient Denies: Cardiac Surgery Abdominal Surgeries: Surgical HX of: Colonoscopy, EGD, Hernia Repair Orthopedic Surgeries: Surgical HX of;: Orthopedic Surgery (fx right arm Dr Steve in [place]) - Family History Family History: Reports;: Family Cancer (colon daughter; prostate; son), Family Diabetes, Family Hypertension - Social History Smoking Status: Former smoker Frequency of Alcohol Use: None Type of Drug Use: None ROS unobtainable: due to mental status Exam - Constitutional Vitals: Period Temp Pulse Resp BP Sys/Diaz Pulse Ox Last 24 Hr 99.6 F-99.6 F 82-99 18-24 124-124/65-65 94-99 General appearance: cachectic - Head Head exam: Present: normal inspection, normocephalic, atraumatic - Eye Eye exam: Present: EOMI, other (Sunken orbits). Absent: conjunctival injection Pupils: Present: TANGELA - ENT ENT exam: Present: normal exam, normal external ear exam - Neck Neck exam: Present: normal inspection. Absent: lymphadenopathy, meningismus, thyromegaly - Respiratory Respiratory exam: Present: accessory muscle use, decreased breath sounds, wheezes (Scattered), other (Barrel chest) - Cardiovascular Cardiovascular exam: Present: JVD, tachycardia. Absent: carotid bruit, diastolic murmur, gallop, regular rate and rhythm, rubs, systolic murmur - GI/Abdominal GI/Abdominal exam: Present: normal bowel sounds, soft - Extremities Exam Extremities exam: Present: normal inspection, normal capillary refill, full ROM. Absent: edema - Back Exam Back exam: Present: normal inspection - Neurological Exam Neurological exam: Present: altered, other (Aroused per tactile stimuli) - Psychiatric Psychiatric exam: Present: normal affect - Skin Skin exam: Present: normal color, warm, dry Results - Labs CBC & BMP: 06/11/17 12:49 06/11/17 12:49 Lab Results: I have reviewed the past 24 hour labs <Padmaja Steele - Last Filed: 06/11/17 16:12> History of Present Illness History of present illness: Patient seen and examined independently of TIME STUDY TECHNICIAN Ty, agree with history, assessment and plan as documented. 87 y/o AAM presents with slurred speech, confusion and congestion. Will check RPR, B12, MRI. Will treat as COPD exacerbation. Family member reports patient seems to have a lot of secretions, that he is now unable to cough up. Duonebs, abx, steroids, cpt. Exam - Constitutional Vitals: Period Temp Pulse Resp BP Sys/Diaz Pulse Ox Last 24 Hr 99.6 F-99.6 F 82-99 18-24 124-124/65-65 94-99 Results - Labs CBC & BMP: 06/11/17 12:49 06/11/17 12:49
[2017-06-11] MEDS ORDERED: ONDANSETRON 4 MG/2 ML VIAL IV PRN (15:40)
[2017-06-11] MEDS ORDERED: ALBUTEROL 2.5 MG/3 ML NEB RESP TX PRN (15:43)
[2017-06-11] MEDS ORDERED: cefTRIAXone 1,000 MG in SODIUM CHLORIDE 0.9% 100 ML IV SCH (16:00)
[2017-06-11] MEDS ORDERED: AZITHROMYCIN 500 MG VIAL IV ONE (16:15)
[2017-06-11 16:42] LABS: Apearance,Urine CLEAR (Clear); Bilirubin,Urine Negative (Negative); Blood, Urine Negative (Negative); Glucose,Urine (UA) Negative (Negative); Ketones,Urine Negative (Negative); Mucus,Urine Occasional /LPF (Occasional); Nitrite,Urine Negative (Negative); Protein,Urine Negative; RBC,Urine <1 /HPF (0-4); Urine Color Yellow (Yellow); Urine Specific Gravity 1.023 (1.001-1.035); Urine Urobilinogen < 2.0 EU/DL (0.2-1.0); WBC,Urine <1 /HPF (0-6)
[2017-06-11] MEDS: methylPREDNISolone SOD SUC 40 MG/1 ML VIAL IV SCH (18:33)
[2017-06-11] MEDS: SODIUM CHLORIDE 0.9% 1,000 ML IV SCH (18:33)
[2017-06-11 19:18] LABS: Risk Ratio 2.68; VLDL CHOLESTEROL 13.4 MG/DL
[2017-06-11] MEDS: ALBUTEROL/IPRATROPIUM 3 ML NEB RESP TX SCH (19:38)
[2017-06-11] MEDS: MONTELUKAST 10 MG TABLET PO SCH (21:56)
[2017-06-11] MEDS: DILTIAZEM CD 180 MG CAPSULE PO SCH (21:56)
[2017-06-11] MEDS: CARVEDILOL 6.25 MG TABLET PO SCH (21:57)
[2017-06-12] MEDS: ALBUTEROL/IPRATROPIUM 3 ML NEB RESP TX SCH ×4 (01:27→20:25)
[2017-06-12] MEDS: methylPREDNISolone SOD SUC 40 MG/1 ML VIAL IV SCH ×3 (01:52→18:01)
[2017-06-12 05:54] LABS: Basophils % 0.7 % (0.0-0.8); Hematocrit 34.3 VOL% (42.0-52.0); Immature Granulocytes % 0.5 %; Immature Granulocytes Absolute 0.02 #; Lymphocytes # 0.7 10*3/uL (1.4-4.0); Lymphocytes % 17.5 % (21.2-54.2); Mean Corpuscular HGB Conc 32.1 GM/DL (32-36); Mean Corpuscular Hemoglobin 26 PG (27-34); Mean Corpuscular Volume 81.1 FL (87-102); Mean Platelet Volume 11.4 FL (9.6-12.0); Monocytes # 0.1 10*3/uL (0.11-0.8); Monocytes % 2.5 % (1.7-12.7); NRBC # 0.02 10*3/uL; Neutrophils # 3.2 10*3/uL (1.4-7.4); Neutrophils % 78.8 % (38.7-73.9); Platelet Count 233 T/CUMM (130-400); Red Blood Count 4.23 MC/CUMM (3.8-5.5); Red Cell Distribution Width 16.1 % (9.3-17.3); White Blood Count 4.1 T/CUMM (4-12)
[2017-06-12 06:28] LABS: Albumin 3.1 G/DL (3.4-5.0); Bilirubin,Total 0.6 MG/DL (0.2-1.0); Calcium 8.7 MG/DL (8.5-10.1); Osmolality,Calculated 287.1 MOS/KG (273-304); Potassium 4.5 MMOL/L (3.5-5.1)
[2017-06-12 06:29] LABS: Band Neutrophils 1 % (0-10); Hypochromasia 1+; Lymphocytes 15 % (20-55); Microcytosis 1+; Nucleated Red Blood Cells 1 (0-5); Ovalocytes Slight; Segmented Neutrophils 82 % (50-85); Total Cells Counted 100
[2017-06-12 06:30] LABS: Acanthocytes Few; Platelet Estimate Normal
[2017-06-12 06:45] LABS: Folate 16.4 NG/ML (5.4-24.0); Vitamin B12 310 PG/ML (211-911)
--- NOTE | 2017-06-12 07:32 | XRay Report ---
Single view the chest. Indication: Shortness of breath. Comparison: June 11, 2017. The heart is normal in size. There is persistent stable uncoiling of the thoracic aorta. The pulmonary vasculature is normal. There is worsening basilar atelectasis. Chronic lung changes remain stable. The osseous structures are diffusely demineralized with degenerative changes of the spinal column and shoulders. Impression: Worsening basilar atelectasis, superimposed on chronic lung changes. PROCEDURE INTERPRETED AT [facility] DEPARTMENT OF RADIOLOGY Final Report Signed by: Dr. Estella Mosqueda
--- NOTE | 2017-06-12 09:46 | Pulmonology Consult Note ---
Assessment and Plan (1) Multi-infarct dementia Status: Acute Assessment and plan: The patient does have an abnormal CT and likely has cerebrovascular disease and dementia. Current Visit: Yes (2) Respiratory failure with hypoxia and hypercapnia Status: Acute Assessment and plan: The patient has abnormal ABGs but looks like he is breathing comfortably at present. Current Visit: No Qualifiers: Chronicity: acute on chronic Qualified Code(s): J96.21 - Acute and chronic respiratory failure with hypoxia (3) COPD (chronic obstructive pulmonary disease) with emphysema Status: Chronic Assessment and plan: We will continue treatment of his COPD. Current Visit: Yes (4) Hypertension Status: Acute Assessment and plan: The patient's blood pressure has been actually on the low side. Current Visit: No (5) Diabetes Status: Acute Assessment and plan: His glucoses are being monitored. Current Visit: No (6) Failure to thrive Status: Acute Assessment and plan: The patient is an elderly man with numerous problems and certainly is gradually deteriorating. There is not been anything to suggest a malignancy. He does have fairly significant chronic lung disease. Current Visit: Yes History of Present Illness Chief complaint: COPD History of present illness: Mr. Logan Leon is a 87 year old black male that has a history of having COPD along with hypertension and atrial fibrillation in the past. He is a former smoker. The family brought the patient in because of worsening shortness of breath along with confusion, weight loss, and failure to thrive. Patient is hard of hearing but says he is breathing okay. He is complaining of some rectal pain along with foot pain. It is unclear when he is having his last bowel movement. He is not eating that well. He does have some cough but no hemoptysis. He had basically a negative CT of his chest in March. 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 He does appear quite debilitated. Home Medications Medication Instructions Recorded Confirmed Type Pravastatin [Pravachol] 20 mg PO DAILY 11/05/15 06/11/17 History Theophylline ER Tab 300 mg PO DAILY 11/05/15 06/11/17 History clonazePAM [Clonazepam] 0.5 tablet PO BID 11/05/15 06/11/17 History Carvedilol [Coreg] 6.25 mg PO BID 09/24/16 06/11/17 History Metformin HCl 500 mg PO BID 09/24/16 06/11/17 History Ranitidine Tab [Zantac Tab] 150 mg PO BEDTIME 09/24/16 06/11/17 History sitaGLIPtin [Januvia] 100 mg PO DAILY 09/24/16 06/11/17 History Albuterol Neb [Proventil Neb] 2.5 mg RESP TX BID 04/01/17 06/11/17 History Aspirin [Ecotrin] 81 mg PO QOTHER DAY 04/01/17 06/11/17 History Montelukast Tab [Singulair Tab] 10 mg PO BEDTIME 04/01/17 06/11/17 History dilTIAZem HCl [Diltiazem ER (24 180 mg PO BID 04/01/17 06/11/17 History hr)] HYDROcodone/ACETAMIN 7.5-325 1 tablet PO Q6H 06/11/17 06/11/17 History [[place] 7.5-325] Potassium Chloride [Klor-Con 8 meq PO BID 06/11/17 06/11/17 History Sprinkle] amLODIPine [Norvasc] 10 mg PO DAILY 06/11/17 06/11/17 History Allergies Allergy/AdvReac Type Severity Reaction Status Date / Time ciprofloxacin [From Cipro] Allergy Unknown/Unable Verified 06/11/17 11:53 to obtain Cyclobenzaprine Allergy Unknown/Unable Verified 06/11/17 11:53 [From Flexeril] to obtain ROS unobtainable: due to mental status (He complains of rectal pain and foot pain and says his breathing is okay. He is very hard of hearing.) - Constitutional Constitutional: Present: weight loss. Absent: fever(s) - EENT Ears: Present: decreased hearing Nose, mouth and throat: Absent: dysphagia, headache(s) - Cardiovascular Cardiovascular: Present: dyspnea. Absent: chest pain at rest, palpitations - Respiratory Respiratory: Present: cough, wheezing - Gastrointestinal Gastrointestinal: Present: constipation, early satiety. Absent: abdominal pain , dysphagia - Genitourinary Genitourinary: Present: difficulty urinating - Musculoskeletal Musculoskeletal: Present: arthralgias - Neurological Neurological: Present: confusion Exam (Pulmonay) H&P - Constitutional Vitals: Period Temp Pulse Resp BP Sys/Diaz Pulse Ox Last 24 Hr 97.7 F-99.6 F 71-99 18-24 101-129/58-68 90-99 General appearance: no acute distress (The patient is chronically ill-appearing. ), under weight - Head Head exam: Present: normal inspection, normocephalic - Eye Eye exam: Present: EOMI. Absent: scleral icterus Pupils: Present: TANGELA - ENT ENT exam: Present: other (Temporal muscle wasting) - Neck Neck exam: Absent: lymphadenopathy, thyromegaly - Respiratory Respiratory exam: Present: decreased breath sounds, prolonged expiratory phase, wheezes, other (He does have distant breath sounds with a barrel chest.) - Cardiovascular Cardiovascular exam: Present: regular rate and rhythm, tachycardia. Absent: gallop, systolic murmur - GI/Abdominal GI/Abdominal exam: Present: normal bowel sounds, soft. Absent: distended, organomegaly, tenderness - Extremities Exam Extremities exam: Absent: calf tenderness, edema - Neurological Exam Neurological exam: Present: altered (The patient is a little confused but mainly hard of hearing.) - Psychiatric Psychiatric exam: Present: anxious - Skin Skin exam: Present: warm, dry Medical,Surgical,& Family Hx - Medical History Cardio: History of: Cardiac Dysrhythmia (Afib), Congenital Heart Disease, Hypertension Psychological: History of: Anxiety Disorders HEENT: History of: Ear Problem Endocrine: History of: Diabetes Mellitus (NIDDM), Dyslipidemia Respiratory: History of: COPD Gastrointestinal: History of: GERD Musculoskeletal: History of: Back/Neck Problems, Musculoskeletal Problems (,fx right arm with surgery and brace) Hematology: History of: Anemia, Bleeding Problems (Heme postitive stool in er) - Surgical History Cardiac Surgeries: Patient Denies: Cardiac Surgery Abdominal Surgeries: Surgical HX of: Colonoscopy, EGD, Hernia Repair Orthopedic Surgeries: Surgical HX of;: Orthopedic Surgery (fx right arm Dr Steve in [place]) - Family History Family History: Reports;: Family Cancer (colon daughter; prostate; son), Family Diabetes, Family Hypertension - Social History Smoking Status: Former smoker Frequency of Alcohol Use: None Type of Drug Use: None Results - Labs CBC & BMP: 06/12/17 05:29 06/12/17 05:29 Labs: His PO2 64 with a PCO2 of 55 and a pH of 7.32 - Diagnostic Findings Procedure: Chest x-ray: image reviewed by me, report reviewed by me (Chest x- ray shows COPD changes with prominent pulmonary arteries. There is minimal atelectasis in the left base. The left hemidiaphragm is a little elevated with some bowel gas obscuring the left base. The recent CT of the chest did not show any significant problems in the left base.) Specialty Discharge - Follow Up or Referrals
[2017-06-12 10:31] LABS: Carcinoembryonic Antigen 0.6 NG/ML (0.0-5.0); Prostate Specific Antigen Diag 0.2 NG/ML (0-4)
[2017-06-12] MEDS ORDERED: LORazepam 2 MG/1 ML VIAL IV ONE (10:31)
--- NOTE | 2017-06-12 10:32 | Hospitalist Progress Note ---
Addendum entered and electronically signed by Jourdan Crawford CNP 06/12/17 11 :45: Correction to sentence 10 on Failure to thrive ; Family refuses to believe that the patient may have an underlying dementia component that is attributing to his altered mental status and failure to thrive. Original Note: Assessment and Plan (1) COPD exacerbation Status: Acute Assessment and plan: The chest x-ray obtained at the time of admission reported chronic lung changes and scarring versus atelectasis at the left base. We will start empiric antibiotics, inhaled bronchodilators, intravenous corticosteroids. We will recheck chest x-ray in a.m. 06/12-chest x-ray significant for worsening basilar atelectasis and superimposed on chronic lung changes. The patient was seen and evaluated by pulmonology this morning. We appreciate the input. We will continue empiric antibiotics, inhaled bronchodilators, and intravenous corticosteroids as previously ordered. Will recheck chest x-ray in a.m. Current Visit: Yes (2) Failure to thrive Status: Acute Assessment and plan: The family reported the general decline in functional status in recent months. In addition, the family reported a dramatic weight loss in recent months. The patient noticeably cachectic. CT brain without contrast significant for generalized atrophy and extensive chronic small vessel ischemic change of the deep white matter. This may may be the cause of the patient's failure to thrive. Will obtain MRI to assess for possible CVA 06/12- Family present at bedside. Spoke with patient in great detail regarding the patient's current status and prognosis. They reported that the patient had been requesting food all night. I informed the family of the current n.p.o. order due to the patient's alteration in level of consciousness. The patient is more awake this morning however I am skeptical to start oral feedings with him at this time. We will consult speech therapy to evaluate and treat. CT brain at the time of admission was significant for generalized atrophy and extensive chronic small vessel ischemic change of the deep white matter. Family to believe that the patient may have a underlying dementia component that is also attributing to his altered mental status and failure to thrive. MRI is scheduled this afternoon. We will await for results. Current Visit: Yes (3) Troponin I above reference range Status: Acute Assessment and plan: Troponin was noted at 0.034 at the time of admission. We will obtain serial cardiac enzymes; if positive; we will consult cardiology. 06/12-troponin has trended downward, troponin noted at 0.029. This is essentially an unremarkable finding. We will monitor closely Current Visit: Yes Hospitalist: Subjective Interval history: Patient seen and examined; chart reviewed. Family at bedside; update provided on patient's current status. MRI today. Exam - Constitutional Vitals: Period Temp Pulse Resp BP Sys/Diaz Pulse Ox Last 24 Hr 97.7 F-99.6 F 71-99 18-24 101-129/58-73 90-99 General appearance: cachectic - Head Head exam: Present: normal inspection, normocephalic, atraumatic - Eye Eye exam: Present: EOMI, conjunctival injection Pupils: Present: TANGELA, normal accommodation - ENT ENT exam: Present: normal exam, normal external ear exam, normal oropharynx - Neck Neck exam: Present: normal inspection. Absent: lymphadenopathy, meningismus, tenderness, thyromegaly - Respiratory Respiratory exam: Present: wheezes (Scattered), other (Barrel chest). Absent: decreased breath sounds - Cardiovascular Cardiovascular exam: Present: regular rate and rhythm. Absent: carotid bruit, diastolic murmur, gallop, JVD, rubs, systolic murmur - GI/Abdominal GI/Abdominal exam: Present: normal bowel sounds, soft. Absent: tenderness, rebound - Extremities Exam Extremities exam: Present: normal inspection, normal capillary refill, full ROM. Absent: edema - Back Exam Back exam: Present: normal inspection - Neurological Exam Neurological exam: Present: altered, other (Grossly hard of hearing) - Psychiatric Psychiatric exam: Present: normal affect - Skin Skin exam: Present: normal color, warm, dry Results - Labs CBC & BMP: 06/12/17 05:29 06/12/17 05:29 Lab Results: I have reviewed the past 24 hour labs Specialty Discharge - Follow Up or Referrals
--- NOTE | 2017-06-12 13:50 | Magnetic Resonance Report ---
History: Altered mental status. Slurred speech, confusion, and weakness Date: 06/12/2017 Study: MRI brain without IV contrast Comparison exam: No previous brain MRI for comparison The brain was imaged in 3 planes on the 1.5 Serina magnet without IV contrast, to include diffusion, T2, FLAIR, gradient echo, and T1-weighted sequences. The ventricles are midline in position without evidence of hydrocephalus. There is moderate diffuse cerebral atrophy. There is no Chiari I malformation. There is no gross pituitary mass. There is no area of mass effect. There is a moderate amount of patchy increased FLAIR and T2 signal in the periventricular white matter without mass effect compatible with changes of small vessel disease. There is also mild small vessel disease in the philippe. No acute hemorrhage is identified. There are some areas of punctate hypointense gradient echo signal compatible with small deposits of hemosiderin from remote hemorrhage involving the posterior inferior left temporal cortex, superior-lateral and posterior right temporal cortex, and subcortical white matter right frontal lobe. There is no evidence of acute ischemia on the diffusion sequence. There is no extra-axial hematoma. There is a normal flow void in the superior sagittal sinus. There is no gross flow abnormality in the [place]. Impression: No definite acute intracranial process. Periventricular small vessel disease. Evidence of remote scattered cortical and subcortical white matter hemorrhage in the temporal lobes and right frontal lobe. No acute hemorrhage or area of focal mass effect. Cerebral atrophy PROCEDURE INTERPRETED AT [facility] DEPARTMENT OF RADIOLOGY Final Report Signed by: Dr. Mira Chong
--- NOTE | 2017-06-12 14:50 | Neurology Consult Note ---
History of Present Illness History of present illness: This is a chronically ill 87-year-old -Vietnamese gentleman with medical history significant for atrial fibrillation, hypertension, anxiety, non-insulin- dependent diabetes mellitus, dyslipidemia, chronic obstructive pulmonary disease , gastroesophageal reflux disease, remote nicotine use, anemia, oxygen dependence, and chronic neck and back pain presented to [facility] yesterday afternoon via EMS for the evaluation of weakness. Family reported the onset of symptoms 3 days prior to presentation. They reported that the patient was noted to have slurred speech, confusion, and weakness. In addition, the patient was noted to have cough and congestion but no fever. The family reported that the patient has experienced a significant weight loss in recent months. When the patient's symptoms became very severe his family became concerned and notified EMS for assistance. MRI of the brain reveals no acute abnormalities but shows a small vessel ischemic disease. Home Medications Medication Instructions Recorded Confirmed Type Pravastatin [Pravachol] 20 mg PO DAILY 11/05/15 06/11/17 History Theophylline ER Tab 300 mg PO DAILY 11/05/15 06/11/17 History clonazePAM [Clonazepam] 0.5 tablet PO BID 11/05/15 06/11/17 History Carvedilol [Coreg] 6.25 mg PO BID 09/24/16 06/11/17 History Metformin HCl 500 mg PO BID 09/24/16 06/11/17 History Ranitidine Tab [Zantac Tab] 150 mg PO BEDTIME 09/24/16 06/11/17 History sitaGLIPtin [Januvia] 100 mg PO DAILY 09/24/16 06/11/17 History Albuterol Neb [Proventil Neb] 2.5 mg RESP TX BID 04/01/17 06/11/17 History Aspirin [Ecotrin] 81 mg PO QOTHER DAY 04/01/17 06/11/17 History Montelukast Tab [Singulair Tab] 10 mg PO BEDTIME 04/01/17 06/11/17 History dilTIAZem HCl [Diltiazem ER (24 180 mg PO BID 04/01/17 06/11/17 History hr)] HYDROcodone/ACETAMIN 7.5-325 1 tablet PO Q6H 06/11/17 06/11/17 History [[place] 7.5-325] Potassium Chloride [Klor-Con 8 meq PO BID 06/11/17 06/11/17 History Sprinkle] amLODIPine [Norvasc] 10 mg PO DAILY 06/11/17 06/11/17 History Allergies Allergy/AdvReac Type Severity Reaction Status Date / Time ciprofloxacin [From Cipro] Allergy Unknown/Unable Verified 06/11/17 11:53 to obtain Cyclobenzaprine Allergy Unknown/Unable Verified 06/11/17 11:53 [From Flexeril] to obtain 12 point system: reviewed and no additional remarkable complaints except as stated Medical,Surgical,& Family Hx - Medical History Cardio: History of: Cardiac Dysrhythmia (Afib), Congenital Heart Disease, Hypertension Psychological: History of: Anxiety Disorders HEENT: History of: Ear Problem Endocrine: History of: Diabetes Mellitus (NIDDM), Dyslipidemia Respiratory: History of: COPD Gastrointestinal: History of: GERD Musculoskeletal: History of: Back/Neck Problems, Musculoskeletal Problems (,fx right arm with surgery and brace) Hematology: History of: Anemia, Bleeding Problems (Heme postitive stool in er) - Surgical History Cardiac Surgeries: Patient Denies: Cardiac Surgery Abdominal Surgeries: Surgical HX of: Colonoscopy, EGD, Hernia Repair Orthopedic Surgeries: Surgical HX of;: Orthopedic Surgery (fx right arm Dr Steve in [place]) - Family History Family History: Reports;: Family Cancer (colon daughter; prostate; son), Family Diabetes, Family Hypertension - Social History Smoking Status: Former smoker Frequency of Alcohol Use: None Type of Drug Use: None Exam - Constitutional Vitals: Period Temp Pulse Resp BP Sys/Diaz Pulse Ox Last 24 Hr 97.7 F-976 F 71-91 18-22 101-129/58-73 90-99 Exam: GENERAL: Patient is in no acute distress. NECK: Neck is supple. There is no JVD. No carotid bruits present. No thyroid masses. CVS: First and second heart sounds are normal. There is no S3 present. Regular rate and rhythm. RESPIRATORY: Lungs are clear to auscultation without any rales or rhonchi. ABDOMEN: Soft and non-tender. Bowel sounds are present. There is no hepatosplenomegaly. EXT: There is no palpable edema. Peripheral pulses are present. Skin: No rashes Central Nervous system: General: Alert, awake Speech: Fluent Comprehension: Fair Facial expressions: Normal Cranial Nerves: CN1/Olfactory: Normal CN II/ Optic: Normal, Visual Albright unreliable CN III, and : TANGELA & EOMI CN V: Normal & intact CN VII: face is symmetric CNVIII: Normal CN XI/X/XI/XII: Intact and Normal Motor: Bulk and Tone is normal. Strength in the right 3/5 Strength in the left 3/5 Sensory: Grossly intact for all the modalities of PP, LT and temp sense Reflexes: 1+ and symmetrical Cerebellar function: Very slow finger to nose and heel to dugan testing. Toes: Equivocal Gait: Not tested at this time Results - Labs CBC & BMP: 06/12/17 05:29 06/12/17 05:29 Assessment and Plan (1) Debility Status: Acute Assessment and plan: Significant physical deconditioning and debility secondary to multiple factors, advanced age and comorbidities. No evidence of a stroke, TIAs, epilepsy or seizures. Agree with current management Improve nutritional status and consult dietitian No new recommendations from neuro standpoint Current Visit: Yes Specialty Discharge - Follow Up or Referrals
[2017-06-12] MEDS: DILTIAZEM CD 180 MG CAPSULE PO SCH ×2 (16:30→21:18)
[2017-06-12] MEDS: CARVEDILOL 6.25 MG TABLET PO SCH ×2 (16:30→21:25)
[2017-06-12] MEDS: THEOPHYLLINE ER 300 MG TABLET PO SCH (16:30)
[2017-06-12] MEDS: SODIUM CHLORIDE 0.9% 1,000 ML IV SCH (16:30)
[2017-06-12] MEDS: cefTRIAXone 1,000 MG in SODIUM CHLORIDE 0.9% 100 ML IV SCH (18:01)
[2017-06-12] MEDS: MIRTAZAPINE 15 MG TABLET PO SCH (21:17)
[2017-06-12] MEDS: MONTELUKAST 10 MG TABLET PO SCH (21:24)
[2017-06-12] MEDS: AZITHROMYCIN INJ 250 MG in SODIUM CHLORIDE 0.9% 250 ML IV SCH (21:25)
[2017-06-13] MEDS: methylPREDNISolone SOD SUC 40 MG/1 ML VIAL IV SCH ×3 (01:22→17:29)
[2017-06-13] MEDS: ALBUTEROL/IPRATROPIUM 3 ML NEB RESP TX SCH ×4 (01:46→19:49)
--- NOTE | 2017-06-13 09:53 | Pulmonology Progress Note ---
Pulmonary - PN: Subj Interval history: Patient is an 87-year-old black man that has a history of COPD along with hypertension and atrial fibrillation. He probably has some dementia also. He came in with weight loss and failure to thrive. He was complaining of a sore bottom and foot pain and this is a little better. He did not have any impaction. He seems to be breathing comfortably. He has minimal atelectasis in his left base. He does not appear to be in any distress now. He is not acting short of breath. His family says he may be eating a little better. Exam (Progress Note) - Constitutional Vitals: Period Temp Pulse Resp BP Sys/Diaz Pulse Ox Last 24 Hr 96.8 F-976 F 63-89 18-20 99-118/55-68 90-97 Exam: General appearance: no acute distress (The patient is chronically ill- appearing. He is in no distress now.), under weight - Head Head exam: Present: normal inspection, normocephalic - Eye Eye exam: Present: EOMI. Absent: scleral icterus Pupils: Present: TANEGLA - ENT ENT exam: Present: other (Temporal muscle wasting) - Neck Neck exam: Absent: lymphadenopathy, thyromegaly - Respiratory Respiratory exam: Present: He has decreased breath sounds bilaterally but is moving air fairly well without any wheezing now. - Cardiovascular Cardiovascular exam: Present: regular rate and rhythm, tachycardia. Absent: gallop, systolic murmur - GI/Abdominal GI/Abdominal exam: Present: normal bowel sounds, soft. Absent: distended, organomegaly, tenderness - Extremities Exam Extremities exam: Absent: calf tenderness, edema - Neurological Exam Neurological exam: Present: altered (The patient is a little confused but mainly hard of hearing.) - Psychiatric Psychiatric exam: Present: anxious - Skin Skin exam: Present: warm, dry Results - Labs CBC & BMP: 06/12/17 05:29 06/12/17 05:29 Assessment and Plan (1) Multi-infarct dementia Status: Acute Assessment and plan: The patient does have an abnormal CT and likely has cerebrovascular disease and dementia. Current Visit: Yes (2) Respiratory failure with hypoxia and hypercapnia Status: Acute Assessment and plan: The patient has abnormal ABGs but looks like he is breathing comfortably at present. He certainly does not seem to be having any respiratory distress now. Current Visit: No Qualifiers: Chronicity: acute on chronic Qualified Code(s): J96.21 - Acute and chronic respiratory failure with hypoxia (3) COPD (chronic obstructive pulmonary disease) with emphysema Status: Chronic Assessment and plan: We will continue treatment of his COPD. He is tolerating his medications. His respiratory status is stable. Current Visit: Yes (4) Hypertension Status: Acute Assessment and plan: The patient's blood pressure has been actually on the low side. At present he appears to be hemodynamically stable. Current Visit: No (5) Diabetes Status: Acute Assessment and plan: His glucoses are being monitored. His glucose is 193 this morning. Current Visit: No (6) Failure to thrive Status: Acute Assessment and plan: The patient is an elderly man with numerous problems and certainly is gradually deteriorating. There is not been anything to suggest a malignancy. He does have fairly significant chronic lung disease. At present he seems to be relatively stable on medications. He is not a good candidate for much workup. Current Visit: Yes Specialty Discharge - Follow Up or Referrals
[2017-06-13] MEDS: THEOPHYLLINE ER 300 MG TABLET PO SCH (10:14)
[2017-06-13] MEDS: DILTIAZEM CD 180 MG CAPSULE PO SCH ×2 (10:14→20:03)
[2017-06-13] MEDS: SODIUM CHLORIDE 0.9% 1,000 ML IV SCH ×2 (10:15→20:09)
[2017-06-13] MEDS: CARVEDILOL 6.25 MG TABLET PO SCH ×2 (10:15→20:03)
--- NOTE | 2017-06-13 13:01 | Hospitalist Progress Note ---
Assessment and Plan (1) COPD (chronic obstructive pulmonary disease) with emphysema Status: Chronic Assessment and plan: continue with brochodilators,steroids, antibiotics Current Visit: Yes (2) Multi-infarct dementia Status: Acute Assessment and plan: MRI report noted-no acute changed. Patient is in his baseline mental status Current Visit: Yes (3) Failure to thrive Status: Acute Assessment and plan: Dietitian has seen and made some recommendations.Malignant screening- negative so far. Current Visit: Yes (4) Debility Status: Acute Assessment and plan: Appreciates Neuro's input. DC planning in progress. Current Visit: Yes (5) Hyperglycemia Status: Acute Assessment and plan: continue with SSC and accucheks Current Visit: Yes (6) Dysphagia Status: Acute Assessment and plan: Dietitian has made her recommendations. Current Visit: Yes Hospitalist: Subjective Interval history: Patient seen this am with no new complaints. Family members want patient to go home instead of a swing bed. We are working on home health/PT. Hopefully dc in am. Exam - Constitutional Vitals: Period Temp Pulse Resp BP Sys/Diaz Pulse Ox Last 24 Hr 96.8 F-98.6 F 62-89 18-20 99-123/55-68 90-99 General appearance: no acute distress, cachectic - Head Head exam: Present: normal inspection - Respiratory Respiratory exam: Present: clear to auscultation bilaterally - Cardiovascular Cardiovascular exam: Present: regular rate and rhythm - GI/Abdominal GI/Abdominal exam: Present: normal bowel sounds - Extremities Exam Extremities exam: Present: normal inspection - Neurological Exam Neurological exam: Present: alert, oriented X3 Results - Labs CBC & BMP: 06/12/17 05:29 06/12/17 05:29 Lab Results: I have reviewed the past 24 hour labs Specialty Discharge - Follow Up or Referrals
[2017-06-13] MEDS: cefTRIAXone 1,000 MG in SODIUM CHLORIDE 0.9% 100 ML IV SCH (17:29)
[2017-06-13] MEDS: AZITHROMYCIN INJ 250 MG in SODIUM CHLORIDE 0.9% 250 ML IV SCH (20:02)
[2017-06-13] MEDS: MONTELUKAST 10 MG TABLET PO SCH (20:03)
[2017-06-13] MEDS: MIRTAZAPINE 15 MG TABLET PO SCH (20:03)
[2017-06-14] MEDS: methylPREDNISolone SOD SUC 40 MG/1 ML VIAL IV SCH ×2 (01:55→09:08)
[2017-06-14] MEDS: ALBUTEROL/IPRATROPIUM 3 ML NEB RESP TX SCH ×3 (01:57→13:09)
[2017-06-14] MEDS: DILTIAZEM CD 180 MG CAPSULE PO SCH (09:09)
[2017-06-14] MEDS: CARVEDILOL 6.25 MG TABLET PO SCH (09:09)
[2017-06-14] MEDS: THEOPHYLLINE ER 300 MG TABLET PO SCH (09:10)
--- NOTE | 2017-06-14 09:13 | Pulmonology Progress Note ---
Pulmonary - PN: Subj Interval history: This 87-year-old man has COPD and bronchopneumonia. Does have some dementia. He is very hard of hearing. He is anxious to go home. Getting antibiotics for bronchopneumonia. Exam (Progress Note) - Constitutional Vitals: Period Temp Pulse Resp BP Sys/Diaz Pulse Ox Last 24 Hr 97.3 F-98.4 F 55-96 18-20 120-139/56-73 91-99 Exam: Patient is responsive. Vital signs normal. Pupils react to light. Throat is clear. Neck supple no bruits. Chest reveals prolonged expiratory phase and a few rhonchi but he does not sound tight. Heart normal rate and rhythm no murmurs. Abdomen soft nontender no masses. Extremities no clubbing cyanosis edema. Calves nontender Results - Labs CBC & BMP: 06/12/17 05:29 06/12/17 05:29 Lab Results: I have reviewed the past 24 hour labs Assessment and Plan (1) Bacterial pneumonia Status: Acute Assessment and plan: Continuing empiric antibiotics. Probably could go to oral medications at this point. Current Visit: No (2) COPD exacerbation Status: Acute Assessment and plan: Continuing bronchodilators. Check room air oxygen saturation. Current Visit: Yes (3) Multi-infarct dementia Status: Acute Assessment and plan: Patient is able to answer questions but is a bit demented. Very poor hearing. Current Visit: Yes Specialty Discharge - Follow Up or Referrals
[2017-06-14 10:15] VITALS: BP 139/59
--- NOTE | 2017-06-14 11:02 | Discharge Summary ---
Hospital Course - Hospital Course Hospital Course: This hospitalization with patient admitted for shortness of breath. He was found to have evidence of pneumonia. Patient was continued on broad-spectrum antibiotics and Solu-Medrol. Solu-Medrol was changed to prednisone. He is remained afebrile the rest of his vitals have been stable. Patient did have an MRI of the head that showed no acute changes. He was also followed by neurology who had no other recommendations. Blood cultures have been negative. He and his and his family is eager to be discharged home today. - Time spent with patient Time with patient DS: Greater than 30 minutes (31 minutes) Diagnosis - Discharge Diagnosis (1) Congestive heart failure Status: Chronic (2) COPD (chronic obstructive pulmonary disease) with emphysema Status: Chronic (3) Community acquired pneumonia Status: Resolved (4) COPD exacerbation Status: Resolved (5) Multi-infarct dementia Status: Chronic Specialty Discharge - Follow Up or Referrals Discharge Plan - Discharge Data Disposition: Disch To Home/Self Care Condition at Discharge: Stable Discharge Diet: advance to your usual diet Activity: resume usual activities as tolerated Hygiene: no restrictions - Discharge Medications New predniSONE TAB [PredniSONE] 20 mg PO BID #15 tablet Azithromycin Tab [Zithromax Tab] 250 mg PO DAILY #5 tablet Continue clonazePAM [Clonazepam] 0.5 tablet PO BID Pravastatin [Pravachol] 20 mg PO DAILY Theophylline ER Tab 300 mg PO DAILY Ranitidine Tab [Zantac Tab] 150 mg PO BEDTIME Metformin HCl 500 mg PO BID sitaGLIPtin [Januvia] 100 mg PO DAILY Carvedilol [Coreg] 6.25 mg PO BID Montelukast Tab [Singulair Tab] 10 mg PO BEDTIME Aspirin [Ecotrin] 81 mg PO QOTHER DAY HYDROcodone/ACETAMIN 7.5-325 [[place] 7.5-325] 1 tablet PO Q6H dilTIAZem HCl [Diltiazem ER (24 hr)] 180 mg PO BID Albuterol Neb [Proventil Neb] 2.5 mg RESP TX BID Potassium Chloride [Klor-Con Sprinkle] 8 meq PO BID amLODIPine [Norvasc] 10 mg PO DAILY - Follow Up or Referral - Forms/Instructions Instructions: Failure to Thrive (DC), Chronic Obstructive Pulmonary Disease ( GEN), COPD Exacerbation, Development Rep (GEN) Additional Discharge Instructions: Follow with Dr. Ibrahim in 1 week. Exam - Constitutional Vitals: Period Temp Pulse Resp BP Sys/Diaz Pulse Ox Last 24 Hr 97.3 F-98.4 F 55-96 18-20 120-139/56-73 91-99 General appearance: normal weight - Head Head exam: Present: normal inspection - ENT ENT exam: Present: normal exam - Respiratory Respiratory exam: Present: clear to auscultation bilaterally - Cardiovascular Cardiovascular exam: Present: regular rate and rhythm - GI/Abdominal GI/Abdominal exam: Present: normal bowel sounds - Extremities Exam Extremities exam: Present: normal inspection - Neurological Exam Neurological exam: Present: alert - Psychiatric Psychiatric exam: Present: normal affect - Skin Skin exam: Present: normal color Discharge Results Procedures and tests throughout hospitalization: Pending Orders 06/11/17 Blood Culture Stat Labs on day of discharge: Labs from last 24 hours 06/13/17 06/13/17 06/13/17 19:51 16:17 12:27 POC Glucose 280 H 156 H 272 H 06/12/17 17:31 POC Glucose 257 H Preliminary micro results at discharge 06/11/17 Unknown Blood Culture - Preliminary Blood No growth at 1 day 06/11/17 12:49 Blood Culture - Preliminary Blood No growth at 1 day DS: Provider Date of admission: 06/11/17 15:01 Primary care physician: Gino Dukes MD Attending physician on admission: Padmaja tSeele MD Consults: 06/11/17 15:38 Consult to Physician [CONS] Routine Comment: ?cva Consulting Provider: Ziyad Limon When should Consulting Provider be notified: In am Person Notified: David Date Notified: 06/12/17 Time Notified: 09:36 Consult Notification Comment: left message to call me back 06/11/17 15:43 Consult to Pulmonary Rehabilitation [CONS] Routine Reason for Pulmonary Rehabilitation: COPD 06/12/17 08:22 Consult to Physician [CONS] Routine Comment: Consulting Provider: Brennan Ho Consult to Specialist Group: Pulmonology Person Notified: md alvarez Date Notified: 06/12/17 Time Notified: 09:37 06/12/17 09:26 Consult to Dietitian [CONS] Routine Reason for Dietitian: Supplements and/or Snacks 06/12/17 11:21 Consult to Occupational Therapy [CONS] Routine Reason for Occupational Therapy: Evaluate and Treat Consult to Physical Therapy [CONS] Routine Reason for Physical Therapy: Evaluate and Treat 06/12/17 11:22 Consult to Case Mgmt/Social Srvs [CONS] Routine Reason for Case Mgmt/Social Srvs: Swingbed/SNF/Care Home 06/13/17 09:58 Consult to Case Mgmt/Social Srvs [CONS] Routine Reason for Case Mgmt/Social Srvs: Home Health Consult Comment: with pt/ot Discharging clinician: Jonathan Chadwick Jr., MD
== END 2017-06-14 14:40 | disposition home or self-care (01) | DRG 190 ==
LOC: EDBD → EDUNIT# → N.ED 11:42 → SUATTDRO 15:01 → N.EDINP 15:01 → N.5E 17:53
PROVIDERS: ADMIT Internal Medicine; ATTEND Internal Medicine Nephrology

== ENCOUNTER 2017-08-31 17:07 | Observation (INO) ==
[2017-08-31] MEDS ORDERED: ONDANSETRON 4 MG/2 ML VIAL IV STA (17:34)
[2017-08-31] MEDS ORDERED: methylPREDNISolone SOD SUC 125 MG/2 ML VIAL IV STA (17:34)
[2017-08-31] MEDS ORDERED: PANTOPRAZOLE 40 MG VIAL IV STA (17:34)
[2017-08-31] MEDS ORDERED: MORPHINE 2 MG/1 ML SYRINGE IV STA (17:34)
[2017-08-31] MEDS ORDERED: ALBUTEROL/IPRATROPIUM 3 ML NEB RESP TX STA (17:34)
[2017-08-31] MEDS ORDERED: SODIUM CHLORIDE 0.9% 500 ML IV STA (17:34)
[2017-08-31] MEDS ORDERED: ALUM/MAG/SIMETH/LIDO VISC 1:1 30 ML BOTTLE PO STA (17:34)
[2017-08-31 18:05] LABS: Basophils # 0.1 10*3/uL (0.0-0.2); Basophils % 1.1 % (0.0-0.8); Eosinophils # 0.3 10*3/uL (0.0-0.87); Eosinophils % 2.8 % (0.00-10.9); Hematocrit 38.3 VOL% (42.0-52.0); Hemoglobin 12.4 GM/DL (14.0-18.0); Immature Granulocytes Absolute 0.21 #; Lymphocytes # 1.6 10*3/uL (1.4-4.0); Mean Corpuscular HGB Conc 32.4 GM/DL (32-36); Mean Corpuscular Hemoglobin 26 PG (27-34); Mean Corpuscular Volume 81.3 FL (87-102); Mean Platelet Volume 10.8 FL (9.6-12.0); Monocytes # 0.8 10*3/uL (0.11-0.8); Monocytes % 7.4 % (1.7-12.7); Neutrophils # 7.6 10*3/uL (1.4-7.4); Neutrophils % 71.7 % (38.7-73.9); Platelet Count 271 T/CUMM (130-400); Red Blood Count 4.71 MC/CUMM (3.8-5.5); Red Cell Distribution Width 14.2 % (9.3-17.3); White Blood Count 10.6 T/CUMM (4-12)
[2017-08-31] MEDS ORDERED: methylPREDNISolone SOD SUC 125 MG/2 ML VIAL ONE (18:05)
[2017-08-31] MEDS ORDERED: ALUM/MAG/SIMETH/LIDO VISC 1:1 30 ML BOTTLE PO ONE (18:05)
[2017-08-31] MEDS ORDERED: ONDANSETRON 4 MG/2 ML VIAL ONE (18:05)
[2017-08-31] MEDS ORDERED: MORPHINE 2 MG/1 ML SYRINGE ONE (18:05)
[2017-08-31] MEDS ORDERED: PANTOPRAZOLE 40 MG VIAL IV ONE (18:05)
[2017-08-31 18:24] LABS: Lactic Acid 2.6 MMOL/L (0.4-2.0)
[2017-08-31 18:25] LABS: Alanine Aminotransferase 10 U/L (16-61); Albumin 3.8 G/DL (3.4-5.0); Alkaline Phosphatase 90 U/L (45-117); Amylase 109 U/L (25-115); Aspartate Amino Transferase 15 U/L (0-37); Bilirubin,Total < 0.39 MG/DL (0.2-1.0); Blood Urea Nitrogen 12 MG/DL (7-18); Calcium 9.5 MG/DL (8.5-10.1); Glucose 115 MG/DL (74-106); Osmolality,Calculated 281.3 MOS/KG (273-304); Potassium 4.5 MMOL/L (3.5-5.1); Sodium 141 MMOL/L (136-145); Total Protein 7.1 G/DL (6.4-8.3); Troponin I Only < 0.015 NG/ML (0.00-0.045)
[2017-08-31] MEDS ORDERED: PIPERACILLIN/TAZOBACTAM 3,375 MG VIAL IV ONE (18:47)
[2017-08-31] MEDS: PIPERACILLIN/TAZOBACTAM 3,375 MG in SODIUM CHLORIDE 0.9% 100 ML IV SCH (19:02)
[2017-08-31 20:46] LABS: Apearance,Urine CLEAR (Clear); Bilirubin,Urine Negative (Negative); Blood, Urine Negative (Negative); Glucose,Urine (UA) Negative (Negative); Ketones,Urine Negative (Negative); Nitrite,Urine Negative (Negative); Protein,Urine Negative; RBC,Urine <1 /HPF (0-4); Squamous Epithelial Cell,Urine Occasional /HPF (0-10); Urine Color Straw (Yellow); Urine Specific Gravity 1.054 (1.001-1.035); Urine Urobilinogen < 2.0 EU/DL (0.2-1.0); WBC,Urine 1 /HPF (0-6)
[2017-08-31] MEDS ORDERED: ONDANSETRON 4 MG/2 ML VIAL IV PRN (21:37)
[2017-08-31] MEDS ORDERED: ACETAMINOPHEN 325 MG TABLET PO PRN (21:37)
[2017-08-31] MEDS ORDERED: GLUCAGON 1 MG VIAL IM PRN (21:37)
[2017-08-31] MEDS ORDERED: DEXTROSE 50% 25 GM/50 ML VIAL IV PRN (21:37)
[2017-08-31] MEDS ORDERED: clonazePAM 0.5 MG TABLET PO PRN (21:51)
[2017-08-31] MEDS: ALBUTEROL 2.5 MG/3 ML NEB RESP TX SCH (22:24)
[2017-08-31] MEDS ORDERED: INFLUENZA VIRUS VACCINE 0.5 ML SYRINGE IM ONE (23:12)
[2017-08-31] MEDS: SODIUM CHLORIDE 0.9% 1,000 ML IV SCH (23:20)
[2017-09-01] MEDS: PIPERACILLIN/TAZOBACTAM 3,375 MG in SODIUM CHLORIDE 0.9% 100 ML IV SCH ×3 (03:06→20:42)
[2017-09-01 05:34] LABS: Basophils # 0.1 10*3/uL (0.0-0.2); Basophils % 0.8 % (0.0-0.8); Hematocrit 37.2 VOL% (42.0-52.0); Hemoglobin 12.1 GM/DL (14.0-18.0); Immature Granulocytes % 1.7 %; Immature Granulocytes Absolute 0.13 #; Lymphocytes # 0.9 10*3/uL (1.4-4.0); Lymphocytes % 11.9 % (21.2-54.2); Mean Corpuscular HGB Conc 32.5 GM/DL (32-36); Mean Corpuscular Hemoglobin 26 PG (27-34); Mean Corpuscular Volume 80.9 FL (87-102); Monocytes # 0.1 10*3/uL (0.11-0.8); Monocytes % 0.8 % (1.7-12.7); Neutrophils # 6.5 10*3/uL (1.4-7.4); Neutrophils % 84.8 % (38.7-73.9); Platelet Count 259 T/CUMM (130-400); Red Cell Distribution Width 14.2 % (9.3-17.3); White Blood Count 7.6 T/CUMM (4-12)
[2017-09-01 06:00] LABS: Band Neutrophils 5 % (0-10); Lymphocytes 13 % (20-55); Metamyelocytes 1 %; Segmented Neutrophils 79 % (50-85); Total Cells Counted 100
[2017-09-01 06:01] LABS: Hypochromasia 1+; Microcytosis 1+; Ovalocytes Few
[2017-09-01 06:02] LABS: Platelet Estimate Normal
[2017-09-01 06:02] LABS: % Iron Saturation 14.7 % (18-50); Ferritin 203.6 ng/ml (26-388)
[2017-09-01 06:03] LABS: Albumin 3.4 G/DL (3.4-5.0); Bilirubin,Total 0.4 MG/DL (0.2-1.0); Calcium 8.8 MG/DL (8.5-10.1); Osmolality,Calculated 282.4 MOS/KG (273-304); Potassium 4.8 MMOL/L (3.5-5.1); Total Protein 6.7 G/DL (6.4-8.3)
[2017-09-01] MEDS: ALBUTEROL 2.5 MG/3 ML NEB RESP TX SCH ×2 (07:58→19:38)
[2017-09-01] MEDS: DILTIAZEM CD 180 MG CAPSULE PO SCH ×2 (08:50→20:40)
[2017-09-01] MEDS: INSULIN LISPRO 100 UNIT/ML SUBCUT SCH ×4 (08:50→20:40)
[2017-09-01] MEDS: PANTOPRAZOLE 40 MG TABLET PO SCH (08:51)
[2017-09-01] MEDS: predniSONE 20 MG TABLET PO SCH ×2 (08:51→20:41)
[2017-09-01] MEDS: CARVEDILOL 6.25 MG TABLET PO SCH ×2 (08:51→17:06)
[2017-09-01] MEDS: FERROUS SULFATE 325 MG TABLET PO SCH (08:51)
[2017-09-01] MEDS: POTASSIUM CHLORIDE 8 MEQ CAPSULE PO SCH ×2 (08:51→20:40)
[2017-09-01] MEDS: PRAVASTATIN 20 MG TABLET PO SCH (08:51)
[2017-09-01] MEDS: THEOPHYLLINE ER 300 MG TABLET PO SCH (08:51)
[2017-09-01] MEDS: ENOXAPARIN 40 MG/0.4 ML SYRINGE SUBCUT SCH (08:51)
[2017-09-01] MEDS: SODIUM CHLORIDE 0.9% 1,000 ML IV SCH ×2 (12:39→20:41)
[2017-09-01] MEDS: MONTELUKAST 10 MG TABLET PO SCH (20:40)
[2017-09-02] MEDS: PIPERACILLIN/TAZOBACTAM 3,375 MG in SODIUM CHLORIDE 0.9% 100 ML IV SCH ×3 (03:09→21:56)
[2017-09-02 05:34] LABS: Basophils % 0.2 % (0.0-0.8); Hematocrit 30.6 VOL% (42.0-52.0); Hemoglobin 10.2 GM/DL (14.0-18.0); Immature Granulocytes % 0.8 %; Immature Granulocytes Absolute 0.09 #; Lymphocytes # 0.7 10*3/uL (1.4-4.0); Lymphocytes % 6.4 % (21.2-54.2); Mean Corpuscular HGB Conc 33.3 GM/DL (32-36); Mean Corpuscular Hemoglobin 27 PG (27-34); Mean Corpuscular Volume 80.1 FL (87-102); Mean Platelet Volume 10.9 FL (9.6-12.0); Monocytes # 0.5 10*3/uL (0.11-0.8); Monocytes % 4.6 % (1.7-12.7); Neutrophils # 9.6 10*3/uL (1.4-7.4); Platelet Count 226 T/CUMM (130-400); Red Blood Count 3.82 MC/CUMM (3.8-5.5); Red Cell Distribution Width 14.5 % (9.3-17.3); White Blood Count 10.9 T/CUMM (4-12)
[2017-09-02 06:02] LABS: Calcium 8.3 MG/DL (8.5-10.1); Osmolality,Calculated 285.4 MOS/KG (273-304); Potassium 4.8 MMOL/L (3.5-5.1)
[2017-09-02] MEDS: INSULIN LISPRO 100 UNIT/ML SUBCUT SCH ×4 (07:31→22:41)
[2017-09-02] MEDS: ALBUTEROL 2.5 MG/3 ML NEB RESP TX SCH ×2 (07:43→19:36)
[2017-09-02] MEDS: ENOXAPARIN 40 MG/0.4 ML SYRINGE SUBCUT SCH (08:32)
[2017-09-02] MEDS: PRAVASTATIN 20 MG TABLET PO SCH (08:32)
[2017-09-02] MEDS: THEOPHYLLINE ER 300 MG TABLET PO SCH (08:32)
[2017-09-02] MEDS: FERROUS SULFATE 325 MG TABLET PO SCH (08:32)
[2017-09-02] MEDS: predniSONE 20 MG TABLET PO SCH ×2 (08:32→21:57)
[2017-09-02] MEDS: PANTOPRAZOLE 40 MG TABLET PO SCH (08:32)
[2017-09-02] MEDS: CARVEDILOL 6.25 MG TABLET PO SCH ×2 (08:32→17:09)
[2017-09-02] MEDS: POTASSIUM CHLORIDE 8 MEQ CAPSULE PO SCH ×2 (08:32→21:57)
[2017-09-02] MEDS: DILTIAZEM CD 180 MG CAPSULE PO SCH ×2 (08:32→21:57)
[2017-09-02] MEDS: SODIUM CHLORIDE 0.9% 1,000 ML IV SCH ×2 (11:24→21:56)
[2017-09-02] MEDS: MONTELUKAST 10 MG TABLET PO SCH (21:57)
[2017-09-02] MEDS ORDERED: ZALEPLON 5 MG CAPSULE PO PRN (22:11)
[2017-09-03] MEDS: PIPERACILLIN/TAZOBACTAM 3,375 MG in SODIUM CHLORIDE 0.9% 100 ML IV SCH (05:00)
[2017-09-03] MEDS: ALBUTEROL 2.5 MG/3 ML NEB RESP TX SCH (07:17)
[2017-09-03 07:24] VITALS: BP 134/79
[2017-09-03] MEDS ORDERED: predniSONE 10 MG TABLET PO SCH (09:00)
[2017-09-03] MEDS: THEOPHYLLINE ER 300 MG TABLET PO SCH (09:15)
[2017-09-03] MEDS: POTASSIUM CHLORIDE 8 MEQ CAPSULE PO SCH (09:15)
[2017-09-03] MEDS: PRAVASTATIN 20 MG TABLET PO SCH (09:15)
[2017-09-03] MEDS: PANTOPRAZOLE 40 MG TABLET PO SCH (09:15)
[2017-09-03] MEDS: FERROUS SULFATE 325 MG TABLET PO SCH (09:15)
[2017-09-03] MEDS: DILTIAZEM CD 180 MG CAPSULE PO SCH (09:15)
[2017-09-03] MEDS: CARVEDILOL 6.25 MG TABLET PO SCH (09:16)
[2017-09-03] MEDS: INSULIN LISPRO 100 UNIT/ML SUBCUT SCH (09:17)
[2017-09-03] MEDS: ENOXAPARIN 40 MG/0.4 ML SYRINGE SUBCUT SCH (09:17)
[2017-09-03] MEDS: SODIUM CHLORIDE 0.9% 1,000 ML IV SCH (10:27)
[2017-09-06] MEDS ORDERED: predniSONE 20 MG TABLET PO SCH (09:00)
[2017-09-09] MEDS ORDERED: predniSONE 10 MG TABLET PO SCH (09:00)
[2017-09-11] MEDS ORDERED: predniSONE 10 MG TABLET PO SCH (09:00)
== END 2017-09-03 11:50 | disposition home health service (06) ==
LOC: N.ED 17:07 → N.EDINP 17:07 → SUATTDRO 21:23 → N.5E 22:18
PROVIDERS: ADMIT Hospitalist; ATTEND Internal Medicine